=== PATIENT | female | born 1965 | race Hispanic/Latino ===

== ENCOUNTER 2016-06-30 06:30 | Inpatient (IN) | payer BC, MEDICAID ==
[2016-06-30 07:03] VITALS: BMI 26.8
[2016-06-30] MEDS ORDERED: Bupivacaine 0.5% Inj(30mL) ONE (07:37)
[2016-06-30] MEDS ORDERED: Propofol 10 mg/ml Inj (20 ML) ONE (07:55)
[2016-06-30] MEDS ORDERED: Midazolam 2 MG/2 ML VIAL ONE (07:56)
[2016-06-30] MEDS ORDERED: Succinylcholine 200 mg/10 ml Inj IV ONE (07:56)
[2016-06-30 07:57] LABS: ADD MANUAL DIFF? NO
[2016-06-30] MEDS ORDERED: metroNIDAZOLE IV 500 mg/100 ml 500 MG/100 ML BAG ONE (08:01)
[2016-06-30 08:03] LABS: BLOOD UREA NITROGEN 7 mg/dL (7-21); CALCIUM 9.7 mg/dL (8.4-10.5); CARBON DIOXIDE 27 mmol/L (21-33); CHLORIDE 101 mmol/L (98-107); GFR AFRICAN-AMERICAN > 60; GLUCOSE,RANDOM 94 mg/dL (70-110); POTASSIUM 3.3 mmol/L (3.6-5.0); SODIUM 139 mmol/L (132-148)
[2016-06-30 08:04] LABS: BASO # 0.02 K/mm3 (0.0-2.0); BASO % 0.3 % (0.0-3.0); EOS # 0.1 (0.0-0.7); EOS % 1.9 % (1.5-5.0); GRAN # 4.21 (1.4-6.5); GRAN % 67.8 % (50.0-68.0); HEMATOCRIT 37.4 % (36.0-48.0); INR 0.99 (0.93-1.08); LYMPH # 1.3 (1.2-3.4); LYMPH % 20.7 % (22.0-35.0); MEAN CELL VOLUME 100.3 fL (80.0-105.0); MEAN CORPUSCULAR HEMOGLOBIN 34.3 pg (25.0-35.0); MEAN CORPUSCULAR HGB CONC 34.2 g/dl (31.0-37.0); MEAN PLATELET VOLUME 9.4 fl (7.0-11.0); MONO # 0.6 (0.1-0.6); MONO % 9.3 % (1.0-6.0); PARTIAL THROMBOPLASTIN TIME 27.4 Seconds (23.7-30.8); PLATELET COUNT 270 10^3/uL (120.0-450.0); RED CELL DISTRIBUTION WIDTH 12.5 % (11.5-14.5); WHITE BLOOD COUNT 6.2 10^3/ul (4.5-11.0)
[2016-06-30] MEDS ORDERED: Rocuronium 10 mg/ml (5 ml) ONE ×3 (08:07→10:48)
[2016-06-30] MEDS ORDERED: Phenylephrine 10 mg/ml Inj ONE (08:42)
[2016-06-30] MEDS ORDERED: Desflurane Inhalation Anesthetic Liq (240 ml) ONE (08:50)
[2016-06-30] MEDS ORDERED: HYDROmorphone 2 mg/ml ISec ONE (10:22)
[2016-06-30] MEDS ORDERED: ePHEDrine 50 mg/ml Inj ONE (10:41)
[2016-06-30] MEDS ORDERED: Neostigmine Methylsulfate 3mg/3ml Syringe IV ONE (11:32)
[2016-06-30] MEDS ORDERED: HYDROmorphone 0.5 mg/0.5 ml ISec IVP ONE ×3 (12:12→12:30)
[2016-06-30] MEDS ORDERED: HYDROmorphone 0.5 mg/0.5 ml ISec ONE ×3 (12:15→13:35)
[2016-06-30] MEDS ORDERED: cefOXitin Sodium 1 GM in Sodium Chloride 0.9% 100 ML IV SCH (12:15)
[2016-06-30] MEDS ORDERED: HYDROmorphone 0.5 mg/0.5 ml ISec IVP PRN (12:23)
[2016-06-30] MEDS ORDERED: HYDROmorphone 1 mg/ml ISec IVP PRN ×2 (12:23→12:29)
[2016-06-30] MEDS ORDERED: HYDROmorphone 0.2 mg/ml (25ml) 25 ML IV PRN ×2 (12:24→14:59)
--- NOTE | 2016-06-30 12:27 | PCM.SURG1 ---
Surgeon's Initial Post Op Note - Surgeon's Notes Surgeon: Dr. Lan Photographic Plate Maker: Dr. Merchant, PGY-2, Dr. Elizabeth Type of Anesthesia: General Endo Pre-Operative Diagnosis: Colostomy Operative Findings: See operative report Post-Operative Diagnosis: Same Operation Performed: 1) Colostomy closure 2) Extensive lysis of intra-abdominal and pelvic adhesions 3) Enterrohorraphy x 7. 4) Partial colon resection with splenic flexure mobilization & low anterior anastomosis Specimen/Specimens Removed: partial colon Estimated Blood Loss: EBL {In ML}: 100 Blood Products Given: N/A Drains Used: John Post-Op Condition: Good Date of Surgery/Procedure: 06/30/16 Time of Surgery/Procedure: 12:27
--- NOTE | 2016-06-30 13:30 | OP ---
PROCEDURE DATE: 06/30/2016 PREOPERATIVE DIAGNOSIS: Colostomy status, history of diverticulosis. POSTOPERATIVE DIAGNOSIS: Colostomy status, history of diverticulosis and dense intra-abdominal pelvic adhesions and deserosalized small bowel. PROCEDURE PERFORMED: 1. Partial descending colectomy. 2. Colostomy closure. 3. Extensive lysis of dense intra-abdominal pelvic adhesions. 4. Repair of the bowel wall deserosalization in 7 areas of small bowel. 5. Splenic flexure mobilization. SURGEON: Dr. Lan ASSISTANTS: Dr. Elizabeth and Dr. Merchant ANESTHESIOLOGIST: Dr. Boucher ANESTHESIA: General endotracheal anesthesia. ESTIMATED BLOOD LOSS: Minimal. SPECIMEN: Portion of descending colon. INDICATION: The patient is a 50-year-old female who has a history of diverticular stricture status post diverticulitis with multiple diverticula, status post resection of the sigmoid colon as well as the right colon. The patient now comes in for reversal of colostomy. DESCRIPTION OF PROCEDURE: The patient was brought to the operating room and placed on the operating table in supine position. The patient was connected to EKG, blood pressure and pulse oximeter monitors. The patient then underwent general endotracheal anesthesia and was prepped and draped in usual sterile fashion. First, underwent timeout procedure, took place where everybody in the room agreed as to patient's identity, diagnosis and procedure being performed. Dr. Elizabeth, who is the retail event assistant, was present during the entire case from the beginning, from making the incision through the enterotomy, lysis of adhesions, colon resection and colostomy closure and through the closure of the abdominal wounds. He was essential in prompt and safe performance of this procedure. First, colostomy site was carefully incised in an elliptical fashion and then carefully cut. Dissection was carried down to the fascia. The colon was detached from the fascia and the ostomy site itself was then excised by transecting the colon with a KAYLA stapler. As this was mobilized, it was then dropped into the abdominal cavity and a midline incision was made through the subcutaneous fat and fascia. Fascia appeared to have several small midline incisional hernias. All of these were carefully dissected out and returned into the abdominal cavity and then the incision was carried through the midline transecting all the small herniations. Now, the abdominal cavity appeared to have multiple dense intra-abdominal adhesions between both small bowel itself, small bowel and colon as well as omentum. After tedious dissection of about an hour and a half, we were able to finally clear through the pelvic adhesion and bring all the small bowel out of the pelvis in order to expose the rectum. A careful dissection was done down there in order to expose the corner of the rectum marked with a stitch. Once this was done, I then proceeded with the further lysis of adhesions between the small bowel loops. Multiple small bowel loops, especially the ones stuck in the pelvis had multiple areas of deserosalization. In order to avoid injury to other organs, small bowel wall deserosalization of 7 different areas was carefully closed using multiple interrupted 3-0 silk stitches. Once all these repairs were done, I then proceeded with mobilizing the descending colon all the way up to transverse colon. Once this entire colon was mobilized, I then needed an adequate length in order to bring it down to the pelvis. In order to do that, the mesentery of the colon was carefully incised at its bottom and adequate length was obtained. However, a portion of the distal colon had to be resected in order to avoid ischemia. Once this was done, I then proceeded with sizing the colon, which sized up to 33 mm and then used an EA stapler #33 in order to anastomose the descending colon with the rectum. Once this was done, the anastomosis was tested with air and there were no leaks noted. The area was then copiously irrigated and all the irrigant fluid was suctioned out. All the small bowel was carefully run and evaluated and there was no further damage to the small bowel wall noted. Once this was completed, I then suctioned all the irrigant fluid and placed and surgical katja for skin. In a similar fashion, the ostomy incision was closed as well. The patient tolerated the procedure well and there was no complication. Sterile dressings were applied to the wound. The patient was awakened, extubated and transferred to the recovery room for further observation. Cornelius Lan MD cc: [id number] TT: 06/30/2016 13:29:45 sn JONES
[2016-06-30] MEDS ORDERED: metroNIDAZOLE IV 500 mg/100 ml 500 MG/100 ML BAG IVPB SCH (14:00)
[2016-06-30] MEDS ORDERED: Naloxone 0.4 mg/ml Inj (Adult) IVP ONE (14:40)
[2016-06-30] MEDS: cefOXitin Sodium 1 GM in Sodium Chloride 0.9% 100 ML IV SCH ×2 (15:52→23:15)
[2016-06-30] MEDS: metroNIDAZOLE IV 500 mg/100 ml 500 MG/100 ML BAG IVPB SCH (15:53)
[2016-06-30] MEDS: HYDROmorphone 0.5 mg/0.5 ml ISec IVP PRN (23:15)
[2016-07-01] MEDS: metroNIDAZOLE IV 500 mg/100 ml 500 MG/100 ML BAG IVPB SCH (01:06)
[2016-07-01] MEDS: HYDROmorphone 0.5 mg/0.5 ml ISec IVP PRN ×6 (02:30→20:20)
[2016-07-01] MEDS: Lactated Ringer's 1,000 ML IV SCH ×3 (05:58→18:12)
[2016-07-01 07:08] LABS: ADD MANUAL DIFF? NO
[2016-07-01 07:12] LABS: BASO # 0.01 K/mm3 (0.0-2.0); BASO % 0.1 % (0.0-3.0); EOS % 0.1 % (1.5-5.0); GRAN # 8.48 (1.4-6.5); MEAN CELL VOLUME 100.9 fL (80.0-105.0); MEAN CORPUSCULAR HEMOGLOBIN 34.1 pg (25.0-35.0); MEAN CORPUSCULAR HGB CONC 33.8 g/dl (31.0-37.0); MONO # 0.8 (0.1-0.6); MONO % 7.8 % (1.0-6.0); PLATELET COUNT 254 10^3/uL (120.0-450.0); RED CELL DISTRIBUTION WIDTH 12.8 % (11.5-14.5); WHITE BLOOD COUNT 10.4 10^3/ul (4.5-11.0)
[2016-07-01 07:34] LABS: ALB/GLOB RATIO 1.1 (1.1-1.8); ALKALINE PHOSPHATASE 77 U/L (38-133); ALT/SGPT 53 U/L (7-56); AST/SGOT 37 U/L (15-39); BILIRUBIN,TOTAL 0.5 mg/dL (0.2-1.3); BLOOD UREA NITROGEN 7 mg/dL (7-21); CALCIUM 8.2 mg/dL (8.4-10.5); CARBON DIOXIDE 29 mmol/L (21-33); CHLORIDE 101 mmol/L (95-110); GFR AFRICAN-AMERICAN > 60; GLUCOSE,RANDOM 95 mg/dL (70-110); POTASSIUM 3.4 mmol/L (3.6-5.0); SODIUM 138 mmol/L (132-148); TOTAL PROTEIN 6.3 g/dL (5.8-8.3)
[2016-07-01] MEDS ORDERED: Benzocaine/Menthol (Cepacol) Lozenge MT PRN (07:50)
--- NOTE | 2016-07-01 07:59 | CP.PCM.PN ---
<Tavon Luevano - Last Filed: 07/01/16 08:10> Subjective - Date & Time of Evaluation Date of Evaluation: 07/01/16 Time of Evaluation: 06:50 - Subjective Subjective: General Surgery Pt S&E. Pt had issue with depressed respiratory rate overnight. STORAGE BATTERY INSPECTOR AND TESTER was stopped and dilaudid PRN ordered. Pt is doing well, pain is controlled. Afebrile. Pt was having ice chips overnight and had 4 cups. NGT had 650cc out of dark brown fluid. John drain had 5cc serosanguinous fluid out since surgery. No other complaints. Objective - Vital Signs/Intake and Output Vital Signs (last 24 hours): Temp Pulse Resp BP Pulse Ox 97.9 F 92 H 20 119/79 97 06/30/16 23:45 06/30/16 23:45 06/30/16 23:45 06/30/16 23:45 06/30/16 20:30 Intake and Output: 07/01/16 07/01/16 06:59 18:59 Intake Total 1800 Output Total 1055 Balance 745 - Medications Medications: Current Medications Benzocaine/Menthol (Cepacol Sore Throat) 1 kayode MT Q2H PRN PRN Reason: Sore Throat Heparin Sodium (Porcine) (Heparin) 5,000 units SC Q12 EVELYN PRN Reason: Protocol Hydromorphone HCl (Dilaudid) 0.5 mg IVP Q3H PRN PRN Reason: Pain, moderate (4-7) Last Admin: 07/01/16 05:27 Dose: 0.5 mg Lactated Ringer's (Lactated Ringer's) 1,000 mls @ 100 mls/hr IV .Q10H EVELYN Last Admin: 07/01/16 05:58 Dose: 100 mls/hr Famotidine (Pepcid 20mg/50ml Premix) 20 mg in 50 mls @ 100 mls/hr IVPB Q12 EVELYN Hydromorphone HCl (Dilaudid 0.2 Mg/Ml Victim Advocate) 25 mls @ 0 mls/hr IV PRN PRN; Protocol; Per Protocol PRN Reason: STORAGE BATTERY INSPECTOR AND TESTER PER MD ORDER Stop: 07/02/16 11:30 Last Admin: 06/30/16 16:17 Dose: 0.2 mls/hr Ondansetron HCl (Zofran Inj) 4 mg IVP Q4H PRN PRN Reason: Nausea/Vomiting - Labs Labs: 07/01/16 06:30 07/01/16 06:30 PT 10.7 Seconds (9.9-11.8) 06/30/16 07:30 INR 0.99 (0.93-1.08) 06/30/16 07:30 APTT 27.4 Seconds (23.7-30.8) 06/30/16 07:30 - Constitutional Appears: Non-toxic, No Acute Distress - Head Exam Head Exam: ATRAUMATIC, NORMOCEPHALIC - Eye Exam Eye Exam: EOMI. absent: Scleral icterus - ENT Exam Additional comments: NGT in place - Respiratory Exam Respiratory Exam: NORMAL BREATHING PATTERN. absent: Respiratory Distress - GI/Abdominal Exam GI & Abdominal Exam: Soft, Tenderness (mild at incisions). absent: Distended, Firm, Guarding, Rigid Additional comments: dressings C/D/I drain in LLQ with 5cc serosanguinous fluid since surgery - Extremities Exam Extremities Exam: absent: Calf Tenderness - Neurological Exam Neurological Exam: Alert, Awake, Oriented x3 - Skin Skin Exam: Dry, Warm Additional comments: skin irritation around tape Assessment and Plan - Assessment and Plan (Free Text) Assessment: 50F s/p colostomy reversal POD#1 Plan: D/C medrano, trial of void Encouraged ambulation and IS use Strict NPO Ok to clamp NGT while ambulating D/W Dr. Riky Luevano PGY3 <Cornelius Lan - Last Filed: 07/03/16 13:12> Objective - Vital Signs/Intake and Output Vital Signs (last 24 hours): Temp Pulse Resp BP Pulse Ox 98.8 F 92 H 18 114/72 95 07/03/16 07:30 07/03/16 07:30 07/03/16 07:30 07/03/16 07:30 07/03/16 07:30 Intake and Output: 07/03/16 07/03/16 06:59 18:59 Intake Total 0 Output Total 505 Balance -505 - Medications Medications: Current Medications Benzocaine/Menthol (Cepacol Sore Throat) 1 kayode MT Q2H PRN PRN Reason: Sore Throat Heparin Sodium (Porcine) (Heparin) 5,000 units SC Q12 EVELYN PRN Reason: Protocol Last Admin: 07/03/16 11:43 Dose: 5,000 units Lactated Ringer's (Lactated Ringer's) 1,000 mls @ 100 mls/hr IV .Q10H [facility] Last Admin: 07/03/16 11:44 Dose: 100 mls/hr Morphine Sulfate (Morphine) 2 mg IVP Q4H PRN PRN Reason: Pain, moderate (4-7) Ondansetron HCl (Zofran Inj) 4 mg IVP Q4H PRN PRN Reason: Nausea/Vomiting Last Admin: 07/03/16 08:48 Dose: 4 mg Oxycodone/Acetaminophen (Percocet 5/325 Mg Tab) 1 tab PO Q4H PRN PRN Reason: Pain, moderate (4-7) Stop: 07/05/16 10:06 Last Admin: 07/02/16 13:51 Dose: 1 tab Simethicone (Mylicon Chew Tab) 80 mg PO PCHS PRN PRN Reason: GI distress Last Admin: 07/01/16 23:10 Dose: 80 mg - Labs Labs: 07/03/16 06:30 07/03/16 06:30 PT 10.7 Seconds (9.9-11.8) 06/30/16 07:30 INR 0.99 (0.93-1.08) 06/30/16 07:30 APTT 27.4 Seconds (23.7-30.8) 06/30/16 07:30 Assessment and Plan - Assessment and Plan (Free Text) Assessment: Patient was seen and examined by me. I agree with assessment and plan as per resident's note.
[2016-07-01] MEDS: Famotidine 20mg/50ml 20 MG/50 ML BAG IVPB SCH ×2 (12:31→21:52)
[2016-07-01] MEDS: Simethicone 80 mg Chewtab PO PRN (23:10)
[2016-07-02] MEDS: HYDROmorphone 0.5 mg/0.5 ml ISec IVP PRN ×5 (01:19→21:17)
--- NOTE | 2016-07-02 03:00 | CON ---
DATE: 07/01/2016 REASON FOR CONSULTATION: Management of the patient's chronic medical problems and followup of reverse colostomy. HISTORY OF PRESENT ILLNESS: The patient is a 50-year-old female, who underwent a reverse colostomy after colectomy 8 months ago for acute diverticulitis. The patient is doing well. The patient complains of some nonspecific abdominal bloating and pain in the surgical site. She is n.p.o. due to infected nasogastric tube. PAST MEDICAL HISTORY: Significant for acute recurrent diverticulitis with diverticulosis, status post colectomy 8 months ago, history of right breast cancer; the patient continues ongoing chemotherapy, history of anxiety, history of hypertension; presently off medication. PAST SURGICAL HISTORY: Colectomy with colostomy 8 months ago and right breast surgery. ALLERGIES: The patient has no known allergies. CURRENT MEDICATIONS: Omeprazole once a day, alprazolam 1 mg twice a day, zolpidem 10 mg at bedtime, valacyclovir 500 mg daily. FAMILY HISTORY: Denies any history of breast or colon cancer. SOCIAL HISTORY: The patient has history of smoking 1 pack a day for the past 30 years. She has a history of drinking alcohol 3-4 times a week. Denies any IV drug use. The patient is . She lives with . She is ambulatory and independent of activity of daily living. REVIEW OF SYSTEMS: Denies any fever, weight loss, dysphagia, cough, shortness of breath. She denies any chest pain or palpitations. She denies any diarrhea , nausea, vomiting, abdominal pain. She denies any dysuria, hematuria, flank pain. She denies any joint pains. She denies any neurological symptoms. The patient complains of chronic insomnia and anxiety. PHYSICAL EXAMINATION: VITAL SIGNS: Stable, temperature 97.3, pulse 83, blood pressure 126/91, respiratory rate 20, oxygen saturation 96% on room air. GENERAL: The patient is comfortable in bed, alert, awake, oriented. HEENT: Head is normocephalic, atraumatic. Oral mucosa is moist. There is an NG tube draining some brownish fluid. NECK: Supple. LUNGS: Clear to auscultation. HEART: Regular rhythm and rate. ABDOMEN: Soft. There is some tenderness in the surgical site, slightly distended. Bowel sounds are positive. EXTREMITIES: With no edema, no calf tenderness. Distal pulses palpable. DIAGNOSTIC TESTS: This morning, CBC with WBC 10.4, hemoglobin 10.8, hematocrit 32, platelet count 254. Chemistry significant for sodium 138, potassium 3.4, BUN 7, and creatinine 0.7. Liver enzymes are normal. ASSESSMENT: 1. A 50-year-old female status post reversal of colostomy, day 1. 2. Hypokalemia. 3. Chronic anemia. 4. Hypomagnesemia. 5. Anxiety. PLAN OF TREATMENT: Continue present postop care; we will replace potassium, we will monitor electrolytes, we will continue present pain management. Debbie Carroll MD cc: [id number] TT: 07/02/2016 02:59:59 Confirmation # [id number] Dictation # [id number] MTDD
[2016-07-02 07:15] LABS: ALKALINE PHOSPHATASE 77 U/L (38-133); ALT/SGPT 41 U/L (7-56); AST/SGOT 26 U/L (15-39); BILIRUBIN,TOTAL 0.7 mg/dL (0.2-1.3); BLOOD UREA NITROGEN 6 mg/dL (7-21); CALCIUM 8.7 mg/dL (8.4-10.5); CARBON DIOXIDE 30 mmol/L (21-33); CHLORIDE 101 mmol/L (98-107); GFR AFRICAN-AMERICAN > 60; GLUCOSE,RANDOM 97 mg/dL (70-110); POTASSIUM 3.2 mmol/L (3.6-5.0); SODIUM 139 mmol/L (132-148); TOTAL PROTEIN 6.5 g/dL (5.8-8.3)
[2016-07-02 07:29] LABS: HEMATOCRIT 31.2 % (36.0-48.0); MEAN CELL VOLUME 101.6 fL (80.0-105.0); MEAN CORPUSCULAR HEMOGLOBIN 34.5 pg (25.0-35.0); MEAN PLATELET VOLUME 9.1 fl (7.0-11.0); RED CELL DISTRIBUTION WIDTH 13.1 % (11.5-14.5); WHITE BLOOD COUNT 7.8 10^3/ul (4.5-11.0)
[2016-07-02] MEDS: Lactated Ringer's 1,000 ML IV SCH ×2 (07:40→07:41)
[2016-07-02] MEDS ORDERED: Magnesium Oxide 400 mg Tab UD PO STA (07:40)
[2016-07-02] MEDS ORDERED: Potassium Chloride 20 mEq ER Tab PO STA (07:40)
[2016-07-02] MEDS ORDERED: Magnesium Sulfate 1 gm in D5W 1 GM/100 ML BAG IVPB ONE (07:44)
[2016-07-02] MEDS ORDERED: Lactated Ringer's 1,000 ML IV SCH (10:04)
[2016-07-02] MEDS ORDERED: Oxycodone/Acetaminophen 5/325 mg Tab PO PRN (10:05)
[2016-07-02] MEDS: Famotidine 20mg/50ml 20 MG/50 ML BAG IVPB SCH (10:11)
--- NOTE | 2016-07-02 10:11 | CP.PCM.PN ---
<Amelia Merchant - Last Filed: 07/02/16 10:08> Subjective - Date & Time of Evaluation Date of Evaluation: 07/02/16 Time of Evaluation: 07:00 - Subjective Subjective: Surgery: Dr. Lan Pt seen and examined. Resting comfortably in bedside chair. States she's feeling well this morning. Admits to some post-op pain but states it's well controlled. Pt tolerating ice-chips, admits to flatus but denies BM. Denies N/V , F/C. Objective - Vital Signs/Intake and Output Vital Signs (last 24 hours): Temp Pulse Resp BP Pulse Ox 98.9 F 86 20 138/89 95 07/02/16 07:30 07/02/16 07:30 07/02/16 07:30 07/02/16 07:30 07/02/16 07:30 Intake and Output: 07/02/16 07/02/16 06:59 18:59 Output Total 30 Balance -30 - Medications Medications: Current Medications Benzocaine/Menthol (Cepacol Sore Throat) 1 kayode MT Q2H PRN PRN Reason: Sore Throat Heparin Sodium (Porcine) (Heparin) 5,000 units SC Q12 EVELYN PRN Reason: Protocol Last Admin: 07/01/16 21:52 Dose: 5,000 units Hydromorphone HCl (Dilaudid) 0.5 mg IVP Q6H PRN PRN Reason: Pain, severe (8-10) Lactated Ringer's (Lactated Ringer's) 1,000 mls @ 50 mls/hr IV .Q20H [facility] Ondansetron HCl (Zofran Inj) 4 mg IVP Q4H PRN PRN Reason: Nausea/Vomiting Last Admin: 07/02/16 01:28 Dose: 4 mg Oxycodone/Acetaminophen (Percocet 5/325 Mg Tab) 1 tab PO Q4H PRN PRN Reason: Pain, moderate (4-7) Stop: 07/05/16 10:06 Simethicone (Mylicon Chew Tab) 80 mg PO PCHS PRN PRN Reason: GI distress Last Admin: 07/01/16 23:10 Dose: 80 mg - Labs Labs: 07/02/16 06:30 07/02/16 06:30 PT 10.7 Seconds (9.9-11.8) 06/30/16 07:30 INR 0.99 (0.93-1.08) 06/30/16 07:30 APTT 27.4 Seconds (23.7-30.8) 06/30/16 07:30 - Constitutional Appears: Well, No Acute Distress - Head Exam Head Exam: ATRAUMATIC, NORMOCEPHALIC - Eye Exam Eye Exam: Normal appearance - ENT Exam ENT Exam: Mucous Membranes Moist - Respiratory Exam Respiratory Exam: NORMAL BREATHING PATTERN - Cardiovascular Exam Cardiovascular Exam: RRR - GI/Abdominal Exam GI & Abdominal Exam: Soft, Tenderness (around incision sites, jazlyn drain with serous fluid. Incisions C/D/I ). absent: Distended, Rebound - Extremities Exam Extremities Exam: Full ROM. absent: Tenderness - Neurological Exam Neurological Exam: Alert, Awake, Oriented x3 - Skin Skin Exam: Dry, Intact, Warm Assessment and Plan - Assessment and Plan (Free Text) Assessment: 50F s/p colostomy reversal; POD#2 Plan: - start CLD; will advance slowly as tolerated - replete K+ and Mg+ - taper IV pain meds and start PO meds - encourage ambulation - d/w Dr. Riky Merchant, PGY-2 Surgery <Cornelius Lan - Last Filed: 07/03/16 13:13> Objective - Vital Signs/Intake and Output Vital Signs (last 24 hours): Temp Pulse Resp BP Pulse Ox 98.8 F 92 H 18 114/72 95 07/03/16 07:30 07/03/16 07:30 07/03/16 07:30 07/03/16 07:30 07/03/16 07:30 Intake and Output: 07/03/16 07/03/16 06:59 18:59 Intake Total 0 Output Total 505 Balance -505 - Medications Medications: Current Medications Benzocaine/Menthol (Cepacol Sore Throat) 1 kayode MT Q2H PRN PRN Reason: Sore Throat Heparin Sodium (Porcine) (Heparin) 5,000 units SC Q12 EVELYN PRN Reason: Protocol Last Admin: 07/03/16 11:43 Dose: 5,000 units Lactated Ringer's (Lactated Ringer's) 1,000 mls @ 100 mls/hr IV .Q10H EVELYN Last Admin: 07/03/16 11:44 Dose: 100 mls/hr Morphine Sulfate (Morphine) 2 mg IVP Q4H PRN PRN Reason: Pain, moderate (4-7) Ondansetron HCl (Zofran Inj) 4 mg IVP Q4H PRN PRN Reason: Nausea/Vomiting Last Admin: 07/03/16 08:48 Dose: 4 mg Oxycodone/Acetaminophen (Percocet 5/325 Mg Tab) 1 tab PO Q4H PRN PRN Reason: Pain, moderate (4-7) Stop: 07/05/16 10:06 Last Admin: 07/02/16 13:51 Dose: 1 tab Simethicone (Mylicon Chew Tab) 80 mg PO PCHS PRN PRN Reason: GI distress Last Admin: 07/01/16 23:10 Dose: 80 mg - Labs Labs: 07/03/16 06:30 07/03/16 06:30 PT 10.7 Seconds (9.9-11.8) 06/30/16 07:30 INR 0.99 (0.93-1.08) 06/30/16 07:30 APTT 27.4 Seconds (23.7-30.8) 06/30/16 07:30 Assessment and Plan - Assessment and Plan (Free Text) Assessment: Patient was seen and examined by me. I agree with assessment and plan as per resident's note.
[2016-07-02] MEDS: Dextrose 5%/0.45% NS 1,000 ML IV SCH (17:17)
--- NOTE | 2016-07-02 18:12 | PN ---
DATE: 07/02/2016 SUBJECTIVE: The patient is status post reversal of colostomy, day #2. The patient is feeling much better. The patient was able to tolerate some liquids and oral medication. She continues with some mild pain at the surgical site. PHYSICAL EXAMINATION: VITAL SIGNS: Stable. Temperature 98.9, pulse 86, blood pressure 138/89, respiratory rate 20. GENERAL: The patient is comfortable, alert, awake, oriented. HEENT: Head is normocephalic, atraumatic. Oral mucosa is moist. NECK: Supple. LUNGS: Clear to auscultation. HEART: Regular rhythm and rate. ABDOMEN: Slightly distended. Bowel sounds are diminished. Surgical wound with dry dressing. EXTREMITIES: With no edema. DIAGNOSTIC TESTS: CBC with WBC 7.8, hemoglobin 10.6, platelet count 240,000. Chemistry with sodium 139, potassium 3.2 and low magnesium 1.0. ASSESSMENT: 1. Status post reversal of colostomy, day #2. 2. Hypokalemia. 3. Hypomagnesemia. 4. Chronic anemia. 5. Anxiety. PLAN OF TREATMENT: We will replace magnesium and potassium today. We will monitor her electrolytes. Continue pain management. Continue routine postoperative care as per surgery. Debbie Carroll MD cc: [id number] TT: 07/02/2016 18:11:50 Confirmation # [id number] Dictation # [id number] MTDD
[2016-07-03] MEDS: HYDROmorphone 0.5 mg/0.5 ml ISec IVP PRN ×2 (02:55→08:43)
[2016-07-03] MEDS: Dextrose 5%/0.45% NS 1,000 ML IV SCH ×2 (02:57→04:00)
[2016-07-03 07:14] LABS: MEAN CELL VOLUME 99.2 fL (80.0-105.0); MEAN CORPUSCULAR HEMOGLOBIN 34.2 pg (25.0-35.0); MEAN CORPUSCULAR HGB CONC 34.4 g/dl (31.0-37.0); MEAN PLATELET VOLUME 9.3 fl (7.0-11.0); RED CELL DISTRIBUTION WIDTH 12.7 % (11.5-14.5); WHITE BLOOD COUNT 4.3 10^3/ul (4.5-11.0)
[2016-07-03 07:19] LABS: BLOOD UREA NITROGEN 8 mg/dL (7-21); CALCIUM 9.8 mg/dL (8.4-10.5); CARBON DIOXIDE 36 mmol/L (21-33); CHLORIDE 90 mmol/L (98-107); GFR AFRICAN-AMERICAN > 60; GLUCOSE,RANDOM 141 mg/dL (70-110); MAGNESIUM 1.3 mg/dL (1.7-2.2); POTASSIUM 3.1 mmol/L (3.6-5.0); SODIUM 135 mmol/L (132-148)
[2016-07-03] MEDS ORDERED: Magnesium Sulfate 1 gm in D5W 1 GM/100 ML BAG IVPB ONE (08:01)
--- NOTE | 2016-07-03 09:40 | CP.PCM.PN ---
<Neyda Demarco - Last Filed: 07/03/16 11:17> Subjective - Date & Time of Evaluation Date of Evaluation: 07/03/16 Time of Evaluation: 09:37 - Subjective Subjective: General Surgery Dr. Lan Pt S&E @bedside. 3 episodes of vomiting overnight and early this AM. pt observed walking hallways. pain controlled; rated 7/10. admits to diarrhea. denies F/C. (-) Flatus. Objective - Vital Signs/Intake and Output Vital Signs (last 24 hours): Temp Pulse Resp BP Pulse Ox 98.8 F 92 H 18 114/72 95 07/03/16 07:30 07/03/16 07:30 07/03/16 07:30 07/03/16 07:30 07/03/16 07:30 Intake and Output: 07/03/16 07/03/16 06:59 18:59 Intake Total 0 Output Total 505 Balance -505 - Medications Medications: Current Medications Benzocaine/Menthol (Cepacol Sore Throat) 1 kayode MT Q2H PRN PRN Reason: Sore Throat Heparin Sodium (Porcine) (Heparin) 5,000 units SC Q12 EVELYN PRN Reason: Protocol Last Admin: 07/02/16 21:16 Dose: 5,000 units Lactated Ringer's (Lactated Ringer's) 1,000 mls @ 50 mls/hr IV .Q20H [facility] Last Admin: 07/02/16 10:10 Dose: 50 mls/hr Dextrose/Sodium Chloride (Dextrose 5%/0.45% Ns 1000 Ml) 1,000 mls @ 100 mls/hr IV .Q10H [facility] Last Admin: 07/03/16 04:00 Dose: 100 mls/hr Potassium Chloride (Potassium Chloride 20 Meq/100 Ml) 20 meq in 100 mls @ 50 mls/hr IVPB ONCE ONE Stop: 07/03/16 10:03 Last Admin: 07/03/16 08:49 Dose: 50 mls/hr Morphine Sulfate (Morphine) 2 mg IVP Q4H PRN PRN Reason: Pain, moderate (4-7) Ondansetron HCl (Zofran Inj) 4 mg IVP Q4H PRN PRN Reason: Nausea/Vomiting Last Admin: 07/03/16 08:48 Dose: 4 mg Oxycodone/Acetaminophen (Percocet 5/325 Mg Tab) 1 tab PO Q4H PRN PRN Reason: Pain, moderate (4-7) Stop: 07/05/16 10:06 Last Admin: 07/02/16 13:51 Dose: 1 tab Simethicone (Mylicon Chew Tab) 80 mg PO PCHS PRN PRN Reason: GI distress Last Admin: 07/01/16 23:10 Dose: 80 mg - Labs Labs: 07/03/16 06:30 07/03/16 06:30 PT 10.7 Seconds (9.9-11.8) 06/30/16 07:30 INR 0.99 (0.93-1.08) 06/30/16 07:30 APTT 27.4 Seconds (23.7-30.8) 06/30/16 07:30 - Constitutional Appears: Non-toxic, No Acute Distress - Head Exam Head Exam: NORMAL INSPECTION - Eye Exam Eye Exam: Normal appearance - ENT Exam ENT Exam: Mucous Membranes Moist - Respiratory Exam Respiratory Exam: NORMAL BREATHING PATTERN. absent: Accessory Muscle Use, Respiratory Distress - Cardiovascular Exam Cardiovascular Exam: REGULAR RHYTHM. absent: Bradycardia, Tachycardia - GI/Abdominal Exam GI & Abdominal Exam: Distended (minimal), Soft, Tenderness (glynn-incisional TTP) . absent: Rebound Additional comments: dressings c/d/i - Extremities Exam Extremities Exam: Normal Inspection - Neurological Exam Neurological Exam: Alert, Awake, Normal Gait, Oriented x3 - Psychiatric Exam Psychiatric exam: Normal Affect, Normal Mood - Skin Skin Exam: Dry, Normal Color, Warm Assessment and Plan - Assessment and Plan (Free Text) Assessment: 50 y/ F POD#3 s/p colostomy reversal - cont CLD - advance slowly as tolerated - replete electrolytes prn - cont pain management - cont anti-emetics - may need NGT if vomiting continues - encourage OOB to chair/Amb/IS use Pt discussed w/ Dr. Riky Demarco DO PGY1 <Cornelius Lan - Last Filed: 07/03/16 13:13> Objective - Vital Signs/Intake and Output Vital Signs (last 24 hours): Temp Pulse Resp BP Pulse Ox 98.8 F 92 H 18 114/72 95 07/03/16 07:30 07/03/16 07:30 07/03/16 07:30 07/03/16 07:30 07/03/16 07:30 Intake and Output: 07/03/16 07/03/16 06:59 18:59 Intake Total 0 Output Total 505 Balance -505 - Medications Medications: Current Medications Benzocaine/Menthol (Cepacol Sore Throat) 1 kayode MT Q2H PRN PRN Reason: Sore Throat Heparin Sodium (Porcine) (Heparin) 5,000 units SC Q12 EVELYN PRN Reason: Protocol Last Admin: 07/03/16 11:43 Dose: 5,000 units Lactated Ringer's (Lactated Ringer's) 1,000 mls @ 100 mls/hr IV .Q10H [facility]ELYN Last Admin: 07/03/16 11:44 Dose: 100 mls/hr Morphine Sulfate (Morphine) 2 mg IVP Q4H PRN PRN Reason: Pain, moderate (4-7) Ondansetron HCl (Zofran Inj) 4 mg IVP Q4H PRN PRN Reason: Nausea/Vomiting Last Admin: 07/03/16 08:48 Dose: 4 mg Oxycodone/Acetaminophen (Percocet 5/325 Mg Tab) 1 tab PO Q4H PRN PRN Reason: Pain, moderate (4-7) Stop: 07/05/16 10:06 Last Admin: 07/02/16 13:51 Dose: 1 tab Simethicone (Mylicon Chew Tab) 80 mg PO PCHS PRN PRN Reason: GI distress Last Admin: 07/01/16 23:10 Dose: 80 mg - Labs Labs: 07/03/16 06:30 07/03/16 06:30 PT 10.7 Seconds (9.9-11.8) 06/30/16 07:30 INR 0.99 (0.93-1.08) 06/30/16 07:30 APTT 27.4 Seconds (23.7-30.8) 06/30/16 07:30 Assessment and Plan - Assessment and Plan (Free Text) Assessment: Patient was seen and examined by me. I agree with assessment and plan as per resident's note.
--- NOTE | 2016-07-03 09:50 | PN ---
DATE: 07/03/2016 SUBJECTIVE: The patient is status post reversal of colostomy day 3. She is feeling well, but developed vomiting yesterday evening. She denies increase of abdominal pain. She seems to have episodes of vomiting after her Dilaudid injection. PHYSICAL EXAMINATION: VITAL SIGNS: Stable. Temperature 98.8, pulse 92, blood pressure 114/72, respiratory rate 18. GENERAL: Comfortable in a reclining chair, alert, awake, oriented. HEENT: Head normocephalic, atraumatic. Oral mucosa is moist. NECK: Supple. LUNGS: Clear to auscultation. HEART: With regular rhythm and rate. ABDOMEN: Soft. There is some tenderness around the surgical site. Bowel sounds are diminished, but positive. EXTREMITIES: With no edema. LABORATORY DATA: This morning, CBC very stable with WBC 4.3, hemoglobin 12.4. Chemistry significant for low magnesium 1.3. Her sodium is 135 normal. Potassium is very low 3.1. Her renal function normal with BUN 18, creatinine 0.8. ASSESSMENT: 1. Status post reversal of colostomy day #3. 2. Hypokalemia. 3. Hypomagnesemia. 4. Vomiting, possibly due to pain medication. 5. Anxiety. PLAN OF TREATMENT: Continue routine postop care. Trial of morphine for pain. Monitor for vomiting. Monitor electrolytes. We will replace her magnesium and potassium. Continue pain management as mentioned. Continue DVT prophylaxis with heparin. Debbie Carroll MD cc: [id number] TT: 07/03/2016 09:49:38 Confirmation # [id number] Dictation # [id number] leanne JONES
[2016-07-03] MEDS: Lactated Ringer's 1,000 ML IV SCH (11:44)
[2016-07-03] MEDS: Morphine 2 mg/ml ISec IVP PRN ×2 (16:10→20:37)
[2016-07-03 18:30] VITALS: RESP 20
[2016-07-03] MEDS: Simethicone 80 mg Chewtab PO PRN (21:15)
[2016-07-04] MEDS: Lactated Ringer's 1,000 ML IV SCH (07:45)
--- NOTE | 2016-07-04 08:42 | CP.PCM.PN ---
<Amelia Merchant - Last Filed: 07/04/16 08:37> Subjective - Date & Time of Evaluation Date of Evaluation: 07/04/16 Time of Evaluation: 07:00 - Subjective Subjective: Surgery: Dr. Lan Pt seen and examined. No acute overnight events. States she's feeling better this morning and has not had any more episodes of vomiting. She admits to having a loose BM. Tolerating CLD and ambulating. Denies F/C. Objective - Vital Signs/Intake and Output Vital Signs (last 24 hours): Temp Pulse Resp BP Pulse Ox 98.1 F 98 H 20 116/69 95 07/04/16 07:26 07/04/16 07:26 07/04/16 07:26 07/04/16 07:26 07/04/16 07:26 Intake and Output: 07/04/16 07/04/16 06:59 18:59 Intake Total 600 Output Total 40 Balance 560 - Medications Medications: Current Medications Benzocaine/Menthol (Cepacol Sore Throat) 1 kayode MT Q2H PRN PRN Reason: Sore Throat Heparin Sodium (Porcine) (Heparin) 5,000 units SC Q12 EVELYN PRN Reason: Protocol Last Admin: 07/03/16 21:15 Dose: 5,000 units Lactated Ringer's (Lactated Ringer's) 1,000 mls @ 100 mls/hr IV .Q10H [facility] Last Admin: 07/03/16 11:44 Dose: 100 mls/hr Morphine Sulfate (Morphine) 2 mg IVP Q4H PRN PRN Reason: Pain, moderate (4-7) Last Admin: 07/03/16 20:37 Dose: 2 mg Ondansetron HCl (Zofran Inj) 4 mg IVP Q4H PRN PRN Reason: Nausea/Vomiting Last Admin: 07/03/16 20:41 Dose: 4 mg Oxycodone/Acetaminophen (Percocet 5/325 Mg Tab) 1 tab PO Q4H PRN PRN Reason: Pain, moderate (4-7) Stop: 07/05/16 10:06 Last Admin: 07/02/16 13:51 Dose: 1 tab Simethicone (Mylicon Chew Tab) 80 mg PO PCHS PRN PRN Reason: GI distress Last Admin: 07/03/16 21:15 Dose: 80 mg Zolpidem Tartrate (Ambien) 5 mg PO HS PRN; Protocol PRN Reason: Insomnia - Labs Labs: 07/03/16 06:30 07/03/16 06:30 PT 10.7 Seconds (9.9-11.8) 06/30/16 07:30 INR 0.99 (0.93-1.08) 06/30/16 07:30 APTT 27.4 Seconds (23.7-30.8) 06/30/16 07:30 - Constitutional Appears: Well, No Acute Distress - Head Exam Head Exam: ATRAUMATIC, NORMOCEPHALIC - Eye Exam Eye Exam: Normal appearance - ENT Exam ENT Exam: Mucous Membranes Moist - Respiratory Exam Respiratory Exam: NORMAL BREATHING PATTERN - Cardiovascular Exam Cardiovascular Exam: RRR - GI/Abdominal Exam GI & Abdominal Exam: Soft. absent: Guarding, Tenderness Additional comments: midline incision with katja, clean dry, intact. John drain LLQ with serosanguinous fluid - Extremities Exam Extremities Exam: absent: Tenderness - Neurological Exam Neurological Exam: Alert, Awake, Oriented x3 - Skin Skin Exam: Dry, Warm Assessment and Plan - Assessment and Plan (Free Text) Assessment: 50F s/p colostomy reversal; POD#4 Plan: - Will advance to FLD and if tolerates will advance to soft for lunch - Cont to encourage ambulation - d/w Dr. Riky Merchant, PGY-2 Surgery <Cornelius Lan - Last Filed: 07/05/16 08:17> Objective - Vital Signs/Intake and Output Vital Signs (last 24 hours): Temp Pulse Resp BP Pulse Ox 98.4 F 89 20 109/73 92 L 07/04/16 16:00 07/04/16 16:00 07/04/16 16:00 07/04/16 16:00 07/04/16 16:00 - Labs Labs: 07/04/16 08:50 07/04/16 08:50 PT 10.7 Seconds (9.9-11.8) 06/30/16 07:30 INR 0.99 (0.93-1.08) 06/30/16 07:30 APTT 27.4 Seconds (23.7-30.8) 06/30/16 07:30 Assessment and Plan - Assessment and Plan (Free Text) Assessment: Patient was seen and examined by me. I agree with assessment and plan as per resident's note.
[2016-07-04 09:09] LABS: HEMATOCRIT 34.2 % (36.0-48.0); MEAN CORPUSCULAR HEMOGLOBIN 34.2 pg (25.0-35.0); MEAN CORPUSCULAR HGB CONC 34.2 g/dl (31.0-37.0); MEAN PLATELET VOLUME 9.2 fl (7.0-11.0); RED CELL DISTRIBUTION WIDTH 12.8 % (11.5-14.5); WHITE BLOOD COUNT 4.9 10^3/ul (4.5-11.0)
[2016-07-04] MEDS: Morphine 2 mg/ml ISec IVP PRN ×3 (09:14→18:06)
[2016-07-04 09:18] LABS: ALB/GLOB RATIO 1.2 (1.1-1.8); ALKALINE PHOSPHATASE 111 U/L (38-133); ALT/SGPT 30 U/L (7-56); AST/SGOT 23 U/L (15-39); BILIRUBIN,TOTAL 0.9 mg/dL (0.2-1.3); BLOOD UREA NITROGEN 14 mg/dL (7-21); CALCIUM 9.3 mg/dL (8.4-10.5); CARBON DIOXIDE 30 mmol/L (21-33); CHLORIDE 90 mmol/L (95-110); GFR AFRICAN-AMERICAN > 60; GLUCOSE,RANDOM 100 mg/dL (70-110); SODIUM 134 mmol/L (132-148); TOTAL PROTEIN 7.4 g/dL (5.8-8.3)
[2016-07-04] MEDS ORDERED: Potassium Chloride 20 mEq ER Tab PO STA (09:54)
[2016-07-04] MEDS ORDERED: Magnesium Oxide 400 mg Tab UD PO STA (09:54)
[2016-07-04 16:47] VITALS: BP 109/73; PULSE 89; TEMP 98.4; O2SAT 92
[2016-07-04] MEDS ORDERED: Potassium Chloride 10 mEq ER Tab PO ONE (17:29)
[2016-07-04] MEDS ORDERED: Magnesium Oxide 400 mg Tab UD PO SCH (18:00)
[2016-07-04] MEDS: Simethicone 80 mg Chewtab PO PRN (18:06)
--- NOTE | 2016-07-04 18:55 | PN ---
DATE: 07/04/2016 SUBJECTIVE: The patient is status post reversal of colostomy surgery day #3. The patient is tolerating clear liquids. She denies any nausea or vomiting. She, however, has diarrhea, had multiple episodes of loose bowel movements, watery bowel movements last night. PHYSICAL EXAMINATION: VITAL SIGNS: Stable. Temperature 98.1, pulse 98, blood pressure 116/69, respiratory rate 20. GENERAL: Comfortable in a reclining chair. Alert, awake, oriented. HEENT: Head is normocephalic, atraumatic. Oral mucosa is moist. NECK: Supple. LUNGS: Clear to auscultation. HEART: Regular rhythm and rate. ABDOMEN: Soft. Bowel sounds are positive. Surgical wound dry with dry clean dressing. EXTREMITIES: With no edema. DIAGNOSTIC TESTS: CBC with WBC 4.9, hemoglobin 11.7, hematocrit 34.2 and platelet count 232,000. Chemistry significant for hypokalemia with potassium 3. Her sodium is 134 and her BUN is and creatinine 0.9. ASSESSMENT: 1. Status post reversal of colostomy day #4. 2. Hypokalemia. 3. Hypomagnesemia. 4. Diarrhea. PLAN OF TREATMENT: We will advance patient's diet. We will replace potassium and magnesium. Continue monitoring of electrolytes. Debbie Carroll MD cc: [id number] TT: 07/04/2016 18:54:07 Confirmation # [id number] Dictation # [id number] leanne MTDAlexia
--- NOTE | 2016-07-04 19:03 | CP.PCM.DIS ---
<NilamNeyda - Last Filed: 07/04/16 19:07> Provider - Provider Date of Admission: 06/30/16 06:30 Attending physician: Cornelius Lan MD Primary care physician: Debbie Puentes MD Time Spent in preparation of Discharge (in minutes): 30 Hospital Course - Lab Results Lab Results: Most Recent Lab Values WBC 4.9 10^3/ul (4.5-11.0) 07/04/16 08:50 RBC 3.42 10^6/uL (3.5-6.1) L 07/04/16 08:50 Hgb 11.7 gm/dL (12.0-16.0) L 07/04/16 08:50 Hct 34.2 % (36.0-48.0) L 07/04/16 08:50 MCV 100.0 fL (80.0-105.0) 07/04/16 08:50 MCH 34.2 pg (25.0-35.0) 07/04/16 08:50 MCHC 34.2 g/dl (31.0-37.0) 07/04/16 08:50 RDW 12.8 % (11.5-14.5) 07/04/16 08:50 Plt Count 332 10^3/uL (120.0-450.0) 07/04/16 08:50 MPV 9.2 fl (7.0-11.0) 07/04/16 08:50 Gran % 82.0 % (50.0-68.0) H 07/01/16 06:30 Lymph % (Auto) 10.0 % (22.0-35.0) L 07/01/16 06:30 [place] % (Auto) 7.8 % (1.0-6.0) H 07/01/16 06:30 Eos % (Auto) 0.1 % (1.5-5.0) L 07/01/16 06:30 Baso % (Auto) 0.1 % (0.0-3.0) 07/01/16 06:30 Gran # 8.48 (1.4-6.5) H 07/01/16 06:30 Lymph # 1.0 (1.2-3.4) L 07/01/16 06:30 [place] # 0.8 (0.1-0.6) H 07/01/16 06:30 Eos # 0.0 (0.0-0.7) 07/01/16 06:30 Baso # 0.01 K/mm3 (0.0-2.0) 07/01/16 06:30 PT 10.7 Seconds (9.9-11.8) 06/30/16 07:30 INR 0.99 (0.93-1.08) 06/30/16 07:30 APTT 27.4 Seconds (23.7-30.8) 06/30/16 07:30 Sodium 134 mmol/L (132-148) 07/04/16 08:50 Potassium 3.0 mmol/L (3.6-5.0) L 07/04/16 08:50 Chloride 90 mmol/L (95-110) L 07/04/16 08:50 Carbon Dioxide 30 mmol/L (21-33) 07/04/16 08:50 Anion Gap 17 (10-20) 07/04/16 08:50 BUN 14 mg/dL (7-21) 07/04/16 08:50 Creatinine 0.9 mg/dL (0.5-1.4) 07/04/16 08:50 Est GFR ( Amer) > 60 07/04/16 08:50 Est GFR (Non-Af Amer) > 60 07/04/16 08:50 Random Glucose 100 mg/dL (70-110) 07/04/16 08:50 Calcium 9.3 mg/dL (8.4-10.5) 07/04/16 08:50 Magnesium 1.3 mg/dL (1.7-2.2) L 07/03/16 06:30 Total Bilirubin 0.9 mg/dL (0.2-1.3) 07/04/16 08:50 AST 23 U/L (15-39) 07/04/16 08:50 ALT 30 U/L (7-56) 07/04/16 08:50 Alkaline Phosphatase 111 U/L (38-133) 07/04/16 08:50 Total Protein 7.4 g/dL (5.8-8.3) 07/04/16 08:50 Albumin 4.0 g/dL (3.0-4.8) 07/04/16 08:50 Globulin 3.4 gm/dL 07/04/16 08:50 Albumin/Globulin Ratio 1.2 (1.1-1.8) 07/04/16 08:50 Urine HCG, Qual Negative (NEGATIVE) 06/30/16 07:15 Blood Type A POSITIVE 06/30/16 07:30 Antibody Screen Negative 06/30/16 07:30 BBK History Checked Patient has bt 06/30/16 07:30 - Hospital Course Hospital Course: 50 y/o F w/ PMHx of HTN, anxiety, R breast Ca, and acute diverticulitis requiring colon resection 8 months ago, who presented to [facility] for elective colostomy reversal. The procedure was uncomplicated and pt tolerated the surgery well. NGT was placed intraoperative and removed POD#1. Pt was plagued w / abd pain and distension after starting CLD; however that resolved w/ BM. Pt is tolerating regular diet and requiring minimal pain medication. John drain placed intraoperatively had minimal output over course of hospital stay was removed prior to pt discharge. Pt is cleared for discharge to home w/ instructions to follow up w/ Dr. Lan and PMD in 1-2wks. Discharge Exam - Head Exam Head Exam: ATRAUMATIC, NORMOCEPHALIC Discharge Plan - Discharge Medications Prescriptions: oxyCODONE/Acetaminophen [Percocet 5/325 mg Tab] 1 ea PO Q6 PRN #30 tab PRN Reason: Pain, Severe (8-10) - Follow Up Plan Condition: GOOD Disposition: HOME/ ROUTINE Instructions: Pneumococcal Vaccine for Adults (DC), Regular Diet (DC), Lysis of Abdominal Adhesions (DC), Acute Wound Care (DC), Open Colostomy Reversal (DC) Referrals: Cornelius Lan MD [Staff Provider] - Debbie Carroll MD [Primary Care Provider] - <Cornelius Lan - Last Filed: 07/05/16 08:18> Provider - Provider Date of Admission: 06/30/16 06:30 Attending physician: Cornelius Lan MD Primary care physician: Debbie Puentes MD Hospital Course - Lab Results Lab Results: Most Recent Lab Values WBC 4.9 10^3/ul (4.5-11.0) 07/04/16 08:50 RBC 3.42 10^6/uL (3.5-6.1) L 07/04/16 08:50 Hgb 11.7 gm/dL (12.0-16.0) L 07/04/16 08:50 Hct 34.2 % (36.0-48.0) L 07/04/16 08:50 MCV 100.0 fL (80.0-105.0) 07/04/16 08:50 MCH 34.2 pg (25.0-35.0) 07/04/16 08:50 MCHC 34.2 g/dl (31.0-37.0) 07/04/16 08:50 RDW 12.8 % (11.5-14.5) 07/04/16 08:50 Plt Count 332 10^3/uL (120.0-450.0) 07/04/16 08:50 MPV 9.2 fl (7.0-11.0) 07/04/16 08:50 Gran % 82.0 % (50.0-68.0) H 07/01/16 06:30 Lymph % (Auto) 10.0 % (22.0-35.0) L 07/01/16 06:30 [place] % (Auto) 7.8 % (1.0-6.0) H 07/01/16 06:30 Eos % (Auto) 0.1 % (1.5-5.0) L 07/01/16 06:30 Baso % (Auto) 0.1 % (0.0-3.0) 07/01/16 06:30 Gran # 8.48 (1.4-6.5) H 07/01/16 06:30 Lymph # 1.0 (1.2-3.4) L 07/01/16 06:30 [place] # 0.8 (0.1-0.6) H 07/01/16 06:30 Eos # 0.0 (0.0-0.7) 07/01/16 06:30 Baso # 0.01 K/mm3 (0.0-2.0) 07/01/16 06:30 PT 10.7 Seconds (9.9-11.8) 06/30/16 07:30 INR 0.99 (0.93-1.08) 06/30/16 07:30 APTT 27.4 Seconds (23.7-30.8) 06/30/16 07:30 Sodium 134 mmol/L (132-148) 07/04/16 08:50 Potassium 3.0 mmol/L (3.6-5.0) L 07/04/16 08:50 Chloride 90 mmol/L (95-110) L 07/04/16 08:50 Carbon Dioxide 30 mmol/L (21-33) 07/04/16 08:50 Anion Gap 17 (10-20) 07/04/16 08:50 BUN 14 mg/dL (7-21) 07/04/16 08:50 Creatinine 0.9 mg/dL (0.5-1.4) 07/04/16 08:50 Est GFR ( Amer) > 60 07/04/16 08:50 Est GFR (Non-Af Amer) > 60 07/04/16 08:50 Random Glucose 100 mg/dL (70-110) 07/04/16 08:50 Calcium 9.3 mg/dL (8.4-10.5) 07/04/16 08:50 Magnesium 1.3 mg/dL (1.7-2.2) L 07/03/16 06:30 Total Bilirubin 0.9 mg/dL (0.2-1.3) 07/04/16 08:50 AST 23 U/L (15-39) 07/04/16 08:50 ALT 30 U/L (7-56) 07/04/16 08:50 Alkaline Phosphatase 111 U/L (38-133) 07/04/16 08:50 Total Protein 7.4 g/dL (5.8-8.3) 07/04/16 08:50 Albumin 4.0 g/dL (3.0-4.8) 07/04/16 08:50 Globulin 3.4 gm/dL 07/04/16 08:50 Albumin/Globulin Ratio 1.2 (1.1-1.8) 07/04/16 08:50 Urine HCG, Qual Negative (NEGATIVE) 06/30/16 07:15 Blood Type A POSITIVE 06/30/16 07:30 Antibody Screen Negative 06/30/16 07:30 BBK History Checked Patient has bt 06/30/16 07:30
[2016-07-05] MEDS ORDERED: Potassium Chloride 20 mEq ER Tab PO SCH (08:00)
== END 2016-07-04 19:45 | disposition home or self-care (01) | DRG 331 ==
LOC: SDAINP 06:30 → EDSTATUS 09:00 → 5RNO 15:35
PROVIDERS: ADMIT General Practice; ATTEND General Practice
PROC: 0DNE0ZZ Release Large Intestine, Open Approach (ICD-10-PCS; 2016-06-30)
PROC: 0DBM0ZZ Excision of Descending Colon, Open Approach (ICD-10-PCS; principal; 2016-06-30 07:30)
PROC: 0DQM0ZZ Repair Descending Colon, Open Approach (ICD-10-PCS; 2016-06-30 07:30)
PROC: 0DN80ZZ Release Small Intestine, Open Approach (ICD-10-PCS; 2016-06-30 07:30)
DX: Z43.3 Encounter for attention to colostomy (principal); K66.0 Peritoneal adhesions (postprocedural) (postinfection); E83.42 Hypomagnesemia; I10 Essential (primary) hypertension; E87.6 Hypokalemia; D64.9 Anemia, unspecified; F41.9 Anxiety disorder, unspecified; Z85.3 Personal history of malignant neoplasm of breast; Z87.891 Personal history of nicotine dependence

== ENCOUNTER 2017-03-23 09:33 | Emergency (ER) | payer BC, MEDICAID ==
[2017-03-23 09:34] VITALS: BMI 26.8
[2017-03-23 10:11] LABS: BASO # 0.03 K/mm3 (0.0-2.0); BASO % 0.4 % (0.0-3.0); EOS # 0.1 (0.0-0.7); GRAN # 4.38 (1.4-6.5); HEMOGLOBIN 13.9 g/dL (12.0-16.0); LYMPH # 3.1 (1.2-3.4); LYMPH % 36.7 % (22.0-35.0); MEAN CELL VOLUME 95.4 fl (80.0-105.0); MEAN CORPUSCULAR HEMOGLOBIN 33.6 pg (25.0-35.0); MEAN CORPUSCULAR HGB CONC 35.2 g/dl (31.0-37.0); MEAN PLATELET VOLUME 9.5 fl (7.0-11.0); MONO # 0.8 (0.1-0.6); MONO % 9.9 % (1.0-6.0); RBC 4.14 10^6/uL (3.5-6.1); RED CELL DISTRIBUTION WIDTH 13.6 % (11.5-14.5); WHITE BLOOD COUNT 8.4 10^3/ul (4.5-11.0)
[2017-03-23 10:26] LABS: PARTIAL THROMBOPLASTIN TIME 32.9 Seconds (25.1-36.5); PROTHROMBIN TIME 11.5 SECONDS (9.4-12.5)
[2017-03-23 10:27] LABS: ALB/GLOB RATIO 1.4 (1.1-1.8); ALBUMIN 4.8 g/dL (3.0-4.8); ALT/SGPT 95 U/L (7-56); AST/SGOT 163 U/L (14-36); BLOOD UREA NITROGEN 11 mg/dL (7-21); CALCIUM 9.8 mg/dL (8.4-10.5); GFR AFRICAN-AMERICAN > 60; GFR NON-AFRICAN AMERICAN > 60; MAGNESIUM 1.1 mg/dL (1.7-2.2)
[2017-03-23 10:32] LABS: B-TYPE NATRIURETIC PEPTIDE 30.1 pg/mL (0-450); TROPONIN I < 0.01 ng/mL
[2017-03-23 10:44] LABS: CK-MB 1.8 ng/mL (0.0-3.6)
[2017-03-23] MEDS ORDERED: Sodium Chloride 0.9% 1,000 ML IV STA (11:12)
[2017-03-23 11:19] VITALS: BP 131/85; PULSE 95; RESP 18; O2SAT 98
[2017-03-23] MEDS ORDERED: Magnesium Sulfate 1 gm in D5W 1 GM/100 ML BAG IVPB ONE (11:47)
[2017-03-23] MEDS ORDERED: Potassium Chloride 20 mEq ER Tab PO STA (11:47)
--- NOTE | 2017-03-23 11:58 | ED PDOC ---
Arrival/HPI - General Chief Complaint: Shortness Of Breath Time Seen by Provider: 03/23/17 09:43 Historian: Patient - History of Present Illness Narrative History of Present Illness (Text): 03/23/17 11:52 you were treated in the ED today for shortness of breath and anxiety otherwise without any nausea/vomiting/headache/dizziness/chest pain/abdomen pain/numbness/ tingling/loss of limb function/pain with urination. hx of breast ca but otherwise no travel'/prior blood clots/hormanal use. no thoughts to harm yourself/others/hallucinations but feeling anxious. 03/23/17 12:25 Time/Duration: Prior to Arrival Symptom Course: Unchanged Context: Home Past Medical History - Provider Review Nursing Documentation Reviewed: Yes - Travel History Have you recently traveled outside [place] w/in the past 3 mons?: No - Infectious Disease Hx of Infectious Diseases: None - Tetanus Immunization Tetanus Immunization: Unknown - Cardiac Hx Cardiac Disorders: No - Pulmonary Hx Respiratory Disorders: No - Neurological Hx Neurological Disorder: No - HEENT Hx HEENT Disorder: No - Renal Hx Renal Disorder: No - Endocrine/Metabolic Hx Endocrine Disorders: No - Hematological/Oncological Hx Blood Disorders: Yes Hx Cancer: Yes (breast ca right) - Integumentary Hx Dermatological Disorder: No - Musculoskeletal/Rheumatological Hx Musculoskeletal Disorders: No Hx Falls: No - Gastrointestinal Hx Gastrointestinal Disorders: Yes Hx Colostomy: Yes Hx Diverticulitis: Yes - Genitourinary/Gynecological Hx Genitourinary Disorders: No - Psychiatric Hx Psychophysiologic Disorder: Yes Hx Anxiety: Yes Hx Substance Use: No - Past Surgical History Past Surgical History: No Previous - Surgical History Other/Comment: colostomy - Anesthesia Hx Anesthesia: Yes Hx Anesthesia Reactions: No Hx Malignant Hyperthermia: No - Suicidal Assessment Feels Threatened In Home Enviroment: No Family/Social History - Physician Review Nursing Documentation Reviewed: Yes Family/Social History: No Known Family HX Smoking Status: Current Some Days Smoker Hx Alcohol Use: Yes (1-2 DRINKS/DAY) Hx Substance Use: No Hx Substance Use Treatment: No Allergies/Home Meds Allergies/Adverse Reactions: Allergies No Known Allergies Allergy (Verified 03/23/17 09:37) Home Medications: Home Meds Medication Instructions Recorded Confirmed valACYclovir [Valtrex] 500 mg PO QAM 06/29/13 03/23/17 Zolpidem Tartrate [Ambien] 10 mg PO HS 12/12/14 03/23/17 Alprazolam [Xanax] 1 mg PO QID PRN 12/25/14 03/23/17 Omeprazole 10 mg PO QAM 01/17/16 03/23/17 Bupropion HCl [Zyban] 150 mg PO QAM 06/17/16 03/23/17 Review of Systems - Physician Review All systems were reviewed & negative as marked: Yes - Review of Systems Constitutional: Normal Eyes: Normal ENT: Normal Respiratory: SOB Cardiovascular: Normal. absent: Chest Pain Gastrointestinal: absent: Abdominal Pain, Nausea, Vomiting Genitourinary Female: absent: Dysuria Musculoskeletal: Normal Skin: Normal Neurological: Normal. absent: Headache, Dizziness, Focal Weakness Endocrine: Normal Hemo/Lymphatic: Normal Psychiatric: Anxiety Physical Exam Vital Signs Reviewed: Yes Vital Signs Pulse Resp BP Pulse Ox 03/23/17 11:18 95 H 18 131/85 98 03/23/17 09:43 22 97 03/23/17 09:42 111 H 22 138/93 H 97 Blood Pressure: Hypertensive Pulse: Tachycardic Respiratory Rate: Normal Appearance: Positive for: Well-Appearing, Non-Toxic, Comfortable Pain Distress: None Mental Status: Positive for: Alert and Oriented X 3 Finger Stick Blood Glucose: 127 - Systems Exam Head: Present: Atraumatic, Normocephalic Pupils: Present: PERRL Extroacular Muscles: Present: EOMI Conjunctiva: Present: Normal Ears: Present: Normal Mouth: Present: Moist Mucous Membranes Pharnyx: Present: Normal Nose (External): Present: Atraumatic Nose (Internal): Present: Normal Inspection Neck: Present: Normal Range of Motion Respiratory/Chest: Present: Clear to Auscultation, Good Air Exchange Cardiovascular: Present: Regular Rate and Rhythm Abdomen: No: Tenderness, Distention, Normal Bowel Sounds, Peritoneal Signs, Rebound, Guarding, McBurney's Point Tender, Rovsing's Sign Present, Hernias, Feeding Tubes, Ostomy Tubes, Mass/Organomegaly, Scars, Other Upper Extremity: Present: Normal Inspection Lower Extremity: Present: Normal Inspection Neurological: Present: GCS=15, CN II-XII Intact, Speech Normal, Motor Func Grossly Intact Skin: Present: Warm, Normal Color Psychiatric: Present: Alert, Oriented x 3, Normal Insight, Normal Concentration , Anxious. No: Normal Affect, Normal Mood, Agitated, Depressed Mood, Suicidal Ideation, Homicidal Ideation, Delusional, Hallucinations, Intoxicated, Lethargic , Other Medical Decision Making ED Course and Treatment: you were treated in the ED today for shortness of breath and anxiety otherwise without any nausea/vomiting/headache/dizziness/chest pain/abdomen pain/numbness/ tingling/loss of limb function/pain with urination/no thoughts to harm yourself or others or hallucinations. You were otherwise breathing easily, pink/moist lips, smiling when you speak, good strength/sensation, alert/oriented, walking easily, clear lungs, no abdomen tenderness, no fever temp 98, heart rate 95 improved, stable breathing rate 22, excellent oxygen level 97% room air, elevated blood pressure 138/93 which we recommend repeat in 2-3 days primary care office to determine further treatment, you have blood tests no infection count 8.4, stable blood level hemoglobin 13.9/platelets 332, stable chemistry sodium 140, potassium supplemented IV fluids given, bicarbonate mildly low, chloride normal, bun normal, creatinine mildly low, glucose mildly elevated, mildly elevated anion gap 25 which was hydrated, liver AST/ALT elevated, Liver Alklaline Phosphatase elevated, Liver bilirubin normal, magnesium supplemented IV fluids given, heart blood test normal, low risk of blood clot, urine test no clear sign of infection and you have no pain with urination, urine test negative, no acute findings on chest xray results no acute, ECG mild fast rate which came on on vital signs, Xanax given in the ED with improvement, and thus discharged home. IV fluids given for mild electrolyte imbalance which was supplemented. Case discussed with Dr. Puentes, who is aware of and in agreement with plan. She recommend follow-up primary care 2-3 days to review symptoms, referral to gastroenterology for mildly elevated liver tests to ensure no complications, endocrine for sugar control, mental health clinic referral. If any worsening pain, fever, chills, nausea, vomiting, difficulty breathing, numbness, loss of limb function, pain with urination or any medical condition then return to the ED. Report Date : 03/23/2017 12:18:21 Procedure: Chest xray Dictator : Magali Engel MD IMPRESSION: No acute findings. 03/23/17 12:29 03/23/17 12:30 03/23/17 12:31 03/23/17 12:34 03/23/17 12:34 - Lab Interpretations Lab Results: 03/23/17 10:00 03/23/17 10:00 Lab Results 03/23/17 11:50: Urine Color Yellow, Urine Appearance Sl cloudy, Urine pH 8.5, Ur Specific [place] 1.010, Urine Protein 30 H, Urine Glucose (UA) Negative, Urine Ketones 40 H, Urine Blood Negative, Urine Nitrate Negative, Urine Bilirubin Negative, Urine Urobilinogen 0.2, Ur Leukocyte Esterase Small H, Urine RBC Negative, Urine WBC 1 - 3, Ur Epithelial Cells Many, Urine Bacteria Many 03/23/17 10:00: Sodium 140, Potassium 3.4 L, Chloride 98, Carbon Dioxide 20 L, Anion Gap 25 H, BUN 11, Creatinine 0.6 L, Est GFR ( Amer) > 60, Est GFR ( Non-Af Amer) > 60, Random Glucose 144 H, Calcium 9.8, Magnesium 1.1 L, Total Bilirubin 0.5, AST 163 H, ALT 95 H, Alkaline Phosphatase 156 H, Lactate Dehydrogenase 684, Total Creatine Kinase 238 H, CK-MB (CK-2) 1.8, CK-MB (CK-2) % Cancelled, Troponin I < 0.01, NT-Pro-B Natriuret Pep 30.1, Total Protein 8.2, Albumin 4.8, Globulin 3.4, Albumin/Globulin Ratio 1.4 03/23/17 10:00: PT 11.5, INR 1.00, APTT 32.9, D-Dimer, Quantitative 241 03/23/17 10:00: WBC 8.4 D, RBC 4.14, Hgb 13.9, Hct 39.5, MCV 95.4, MCH 33.6, MCHC 35.2, RDW 13.6, Plt Count 332, MPV 9.5, Gran % 52.0, Lymph % (Auto) 36.7 H , [place] % (Auto) 9.9 H, Eos % (Auto) 1.0 L, Baso % (Auto) 0.4, Gran # 4.38, Lymph # 3.1, [place] # 0.8 H, Eos # 0.1, Baso # 0.03 I have reviewed the lab results: Yes - RAD Interpretation Radiology Orders: 03/23/17 11:38 CHEST TWO VIEWS (PA/LAT) [RAD] Stat Optician Apprentice: Radiologist - EKG Interpretation Interpreted by ED Physician: Yes (sinus tachycardia with pvcs.) Type: 12 lead EKG - Medication Orders Current Medication Orders: Magnesium Sulfate/Dextrose (Magnesium Sulfate 1 Gm/100 Ml D5w) 1 gm in 100 mls @ 100 mls/hr IVPB ONCE ONE Stop: 03/23/17 12:46 Last Admin: 03/23/17 12:05 Dose: Discontinued Medications Alprazolam (Xanax) 0.5 mg PO STAT STA PRN Reason: Protocol Stop: 03/23/17 10:03 Last Admin: 03/23/17 10:07 Dose: 0.5 mg Sodium Chloride (Sodium Chloride 0.9%) 1,000 mls @ 999 mls/hr IV .Q1H1M STA Stop: 03/23/17 12:12 Last Admin: 03/23/17 11:15 Dose: 999 mls/hr eMAR Start Stop Document 03/23/17 11:15 SE (Rec: 03/23/17 11:15 SE [id number]) Intravenous Solution Start Date 03/23/17 Start Time 11:15 Potassium Chloride (K-Dur 20 Meq Er Tab) 40 meq PO STAT STA Stop: 03/23/17 11:48 Last Admin: 03/23/17 12:05 Dose: 40 meq Disposition/Present on Arrival - Present on Arrival Any Indicators Present on Arrival: Yes History of DVT/PE: No History of Uncontrolled Diabetes: No Urinary Catheter: No History of Decub. Ulcer: No History Surgical Site Infection Following: None - Disposition Have Diagnosis and Disposition been Completed?: Yes Diagnosis: Anxiety Disposition: HOME/ ROUTINE Disposition Time: 12:35 Patient Plan: Discharge Condition: IMPROVED Additional Instructions: you were treated in the ED today for shortness of breath and anxiety otherwise without any nausea/vomiting/headache/dizziness/chest pain/abdomen pain/numbness/ tingling/loss of limb function/pain with urination/no thoughts to harm yourself or others or hallucinations. You were otherwise breathing easily, pink/moist lips, smiling when you speak, good strength/sensation, alert/oriented, walking easily, clear lungs, no abdomen tenderness, no fever temp 98, heart rate 95 improved, stable breathing rate 22, excellent oxygen level 97% room air, elevated blood pressure 138/93 which we recommend repeat in 2-3 days primary care office to determine further treatment, you have blood tests no infection count 8.4, stable blood level hemoglobin 13.9/platelets 332, stable chemistry sodium 140, potassium supplemented IV fluids given, bicarbonate mildly low, chloride normal, bun normal, creatinine mildly low, glucose mildly elevated, mildly elevated anion gap 25 which was hydrated, liver AST/ALT elevated, Liver Alklaline Phosphatase elevated, Liver bilirubin normal, magnesium supplemented IV fluids given, heart blood test normal, low risk of blood clot, urine test no clear sign of infection and you have no pain with urination, urine test negative, no acute findings on chest xray results no acute, ECG mild fast rate which came on on vital signs, Xanax given in the ED with improvement, and thus discharged home. IV fluids given for mild electrolyte imbalance which was supplemented. Case discussed with Dr. Puentes, who is aware of and in agreement with plan. She recommend follow-up primary care 2-3 days to review symptoms, referral to gastroenterology for mildly elevated liver tests to ensure no complications, endocrine for sugar control, mental health clinic referral. If any worsening pain, fever, chills, nausea, vomiting, difficulty breathing, numbness, loss of limb function, pain with urination or any medical condition then return to the ED. Referrals: Debbie Carroll MD [Primary Care Provider] - Follow up with primary Forms: [employer] ([place]an)
[2017-03-23 11:59] LABS: PH,URINE 8.5 (4.7-8.0); URINE APPEARANCE SL CLOUDY (CLEAR); URINE BILIRUBIN NEGATIVE (NEGATIVE); URINE BLOOD NEGATIVE (NEGATIVE); URINE COLOR YELLOW (YELLOW); URINE GLUCOSE (UA) NEGATIVE (NEGATIVE); URINE LEUKOCYTE ESTERASE SMALL Leu/uL (NEGATIVE); URINE NITRATE NEGATIVE (NEGATIVE); URINE PROTEIN 30 mg/dL (<30 mg/dL); URINE UROBILINOGEN 0.2 E.U./dL (<1 E.U./dL)
[2017-03-23 12:06] LABS: URINE BACTERIA MANY (NEG); URINE EPITHELIAL CELLS MANY /hpf (0-5)
[2017-03-23 12:07] LABS: URINE RBC NEGATIVE /hpf (0-2)
--- NOTE | 2017-03-23 12:20 | RAD ---
HISTORY: COMPARISON: 01/17/2017 TECHNIQUE: Chest PA and lateral FINDINGS: LINES AND TUBES: The right MediPort is stable in position terminating in the SVC. LUNG AND PLEURA: The lungs are well inflated and clear. HEART AND MEDIASTINUM: The heart is not enlarged. The hilar and mediastinal contours are within normal limits. SKELETAL STRUCTURES: The bony structures are within normal limits for the patient's age. VISUALIZED UPPER ABDOMEN: Normal. OTHER FINDINGS: None. IMPRESSION: No acute findings.
[2017-03-23 12:32] VITALS: TEMP 98
--- NOTE | 2017-03-23 13:58 | CARD ---
APPROVED REPORT EKG Measurement Heart [id number] NM [id number] <Conclusion> Sinus tachycardia with occasional premature ventricular complexes Otherwise normal ECG
== END 2017-03-23 12:46 | disposition home or self-care (01) ==
LOC: ED 09:33
DX: F41.9 Anxiety disorder, unspecified (principal); Z85.3 Personal history of malignant neoplasm of breast; Z93.3 Colostomy status; F17.210 Nicotine dependence, cigarettes, uncomplicated
CPT/HCPCS: 71046; 80053; 81001; 82550; 82553; 83615; 83735; 83880; 84484; 85025; 85378; 85610; 85730; 87086; 93005; 99284; J7040

== ENCOUNTER 2017-09-18 16:26 | Observation (INO) | payer BC, MEDICAID ==
[2017-09-18] MEDS ORDERED: Multivitamin (MVI) 10 ML, Thiamine 100 MG, Folic Acid 1 MG in Sodium Chloride 0.9% 1,00... IV ONE ×2 (16:44→19:32)
--- NOTE | 2017-09-18 16:48 | ED PDOC ---
Arrival/HPI - General Time Seen by Provider: 09/18/17 16:30 Historian: Patient - History of Present Illness Narrative History of Present Illness (Text): 09/18/17 16:43 A 51 year old female, whose past medical history includes breast CA on tamoxifen , presents to the emergency room s/p seizure prior to arrival. Patient states that she was at the nail salon getting a pedicure when she began to experience a generalized tonic-clonic seizure. The patient notes that she bit her lower lip. Patient states that she experienced a similar episode several months ago. She reports that she quit smoking 1 month ago. Patient is an alcoholic, and has 6 drinks a day. She states that she stopped drinking 2 days ago. The patient denies fevers, chills, headache, dizziness, sore throat, cough, chest pain, shortness of breath, dyspnea on exertion, abdominal pain, nausea, vomiting, diarrhea, neck/back pain, urinary/bowel changes/ incontinence or any other complaint. PMD: Dr. Puentes Time/Duration: Prior to Arrival Symptom Onset: Sudden Symptom Course: Unchanged Activities at Onset: Rest, Light Context: Other (Nail Salon) Associated Symptoms (Text): 09/18/17 17:00 Daughter reports generalized tonic-clonic seizure activity while sitting in a chair at the nail salon. Similar episode several months ago. Patient is an alcoholic and last drank 2 days ago. Past Medical History - Provider Review Nursing Documentation Reviewed: Yes - Infectious Disease Hx of Infectious Diseases: None - Tetanus Immunization Tetanus Immunization: Unknown - Cardiac Hx Cardiac Disorders: No - Pulmonary Hx Respiratory Disorders: No - Neurological Hx Neurological Disorder: No - HEENT Hx HEENT Disorder: No - Renal Hx Renal Disorder: No - Endocrine/Metabolic Hx Endocrine Disorders: No - Hematological/Oncological Hx Blood Disorders: Yes Hx Cancer: Yes (breast ca right) - Integumentary Hx Dermatological Disorder: No - Musculoskeletal/Rheumatological Hx Musculoskeletal Disorders: No Hx Falls: No - Gastrointestinal Hx Gastrointestinal Disorders: Yes Hx Colostomy: Yes Hx Diverticulitis: Yes - Genitourinary/Gynecological Hx Genitourinary Disorders: No - Psychiatric Hx Psychophysiologic Disorder: Yes Hx Anxiety: Yes Hx Substance Use: No - Past Surgical History Past Surgical History: No Previous - Surgical History Other/Comment: colostomy - Anesthesia Hx Anesthesia: Yes Hx Anesthesia Reactions: No Hx Malignant Hyperthermia: No - Suicidal Assessment Feels Threatened In Home Enviroment: No Family/Social History - Physician Review Nursing Documentation Reviewed: Yes Family/Social History: No Known Family HX Smoking Status: Current Some Days Smoker Hx Alcohol Use: Yes Frequency of alcohol use: Daily Hx Substance Use: No Hx Substance Use Treatment: No Allergies/Home Meds Allergies/Adverse Reactions: Allergies No Known Allergies Allergy (Verified 09/18/17 16:43) Home Medications: Home Meds Medication Instructions Recorded Confirmed valACYclovir [Valtrex] 500 mg PO QAM 06/29/13 03/23/17 Zolpidem Tartrate [Ambien] 10 mg PO HS 12/12/14 03/23/17 Alprazolam [Xanax] 1 mg PO QID PRN 12/25/14 03/23/17 Omeprazole 10 mg PO QAM 01/17/16 03/23/17 Bupropion HCl [Zyban] 150 mg PO QAM 06/17/16 03/23/17 Review of Systems - Physician Review All systems were reviewed & negative as marked: Yes - Review of Systems Constitutional: absent: Fatigue, Fevers, Night Sweats ENT: Other (Lip Biting). absent: Sore Throat Respiratory: absent: SOB, Cough Cardiovascular: absent: Chest Pain, WALL Gastrointestinal: absent: Abdominal Pain, Stool Changes, Diarrhea, Nausea, Vomiting Genitourinary Female: absent: Urine Output Changes Musculoskeletal: absent: Back Pain, Neck Pain Neurological: Seizure. absent: Headache, Dizziness, Focal Weakness, Gait Changes, Speech Changes, Facial Droop, Disequilibrium Physical Exam Vital Signs Temp Pulse Resp BP Pulse Ox 09/18/17 17:35 85 18 110/74 94 L 09/18/17 16:27 98.7 F 117 H 16 143/82 98 Temperature: Afebrile Blood Pressure: Hypertensive Pulse: Tachycardic Respiratory Rate: Normal Appearance: Positive for: Well-Appearing, Non-Toxic, Comfortable Pain Distress: None Mental Status: Positive for: Alert and Oriented X 3 - Systems Exam Head: Present: Atraumatic, Normocephalic Pupils: Present: PERRL Extroacular Muscles: Present: EOMI Conjunctiva: Present: Normal Ears: Present: NORMAL TM. No: Erythema, Normal Canal Mouth: Present: Moist Mucous Membranes. No: Normal Lips (Lower lip biting) Pharnyx: No: ERYTHEMA, EXUDATE, TONSILS ENLARGED Neck: Present: Normal Range of Motion Respiratory/Chest: Present: Clear to Auscultation, Good Air Exchange. No: Respiratory Distress, Accessory Muscle Use Cardiovascular: Present: Regular Rate and Rhythm, Normal S1, S2. No: Murmurs Abdomen: No: Tenderness, Distention, Peritoneal Signs, Rebound, Guarding Back: Present: Normal Inspection Upper Extremity: Present: Normal Inspection. No: Cyanosis, Edema Lower Extremity: Present: Normal Inspection. No: Edema Neurological: Present: GCS=15, CN II-XII Intact, Speech Normal, Motor Func Grossly Intact, Other (Patient Shaking) Skin: Present: Warm, Dry, Normal Color. No: Rashes Psychiatric: Present: Alert, Oriented x 3, Normal Insight, Normal Concentration Medical Decision Making ED Course and Treatment: 09/18/17 16:51 Impression: A 51 year old female presents to the emergency room s/p seizure. Plan: -- Head CT -- EKG -- Ativan and IV Fluids -- Urinalysis -- Reassess and disposition Progress Notes: 09/18/17 17:02 EKG shows normal sinus rhythm rate approximately [address] or T-wave changes 09/18/17 17:57 Case discussed in detail with Dr. Muñiz who accepts patient to her service. She is currently at beside assessing the patient for Telemetry admission. PROCEDURE: CT HEAD WITHOUT CONTRAST. Dictator : Chuy Severino MD Report Date : 09/18/2017 17:41:46 IMPRESSION: No acute intracranial pathology. - Lab Interpretations Lab Results: 09/18/17 17:00 09/18/17 17:00 Lab Results 09/18/17 17:00: Alcohol, Quantitative < 10 09/18/17 17:00: Sodium 139, Potassium 3.4 L, Chloride 100, Carbon Dioxide 19 L, Anion Gap 24 H, BUN 11, Creatinine 0.8, Est GFR ( Amer) > 60, Est GFR ( Non-Af Amer) > 60, Random Glucose 182 H, Calcium 9.3, Magnesium 1.4 L, Total Bilirubin 0.9, AST 90 H D, ALT 49, Alkaline Phosphatase 101, Total Protein 7.8, Albumin 4.5, Globulin 3.3, Albumin/Globulin Ratio 1.4 09/18/17 17:00: WBC 6.4 D, RBC 4.19, Hgb 14.3, Hct 40.7, MCV 97.1, MCH 34.1, MCHC 35.1, RDW 13.2, Plt Count 265, MPV 9.6, Gran % 68.9 H, Lymph % (Auto) 21.1 L, [place] % (Auto) 8.7 H, Eos % (Auto) 0.8 L, Baso % (Auto) 0.5, Gran # 4.44, Lymph # (Auto) 1.4, [place] # (Auto) 0.6, Eos # (Auto) 0.1, Baso # (Auto) 0.03 I have reviewed the lab results: Yes - RAD Interpretation Radiology Orders: 09/18/17 16:44 HEAD W/O CONTRAST [CT] Stat CT scan of the head as read by the radiologist shows no acute findings. Silo Operator: Radiologist - EKG Interpretation Interpreted by ED Physician: Yes Type: 12 lead EKG - Medication Orders Current Medication Orders: Magnesium Sulfate/Dextrose (Magnesium Sulfate 1 Gm/100 Ml D5w) 1 gm in 100 mls @ 100 mls/hr IVPB ONCE ONE Stop: 09/18/17 18:44 Discontinued Medications Multivitamins/Vitamin C 10 ml/Thiamine HCl 100 mg/ Folic Acid 1 mg/ Sodium Chloride 1,011.2 mls @ 1,000 mls/hr IV .Q1H1M ONE Stop: 09/18/17 17:44 Last Admin: 09/18/17 17:49 Dose: 1,000 mls/hr eMAR Start Stop Document 09/18/17 17:49 SRE (Rec: 09/18/17 17:49 SRE [id number]) Intravenous Solution Start Date 09/18/17 Start Time 17:49 End Date 09/18/17 End time 18:50 Total Infusion Time 61 Lorazepam (Ativan) 2 mg IVP STAT STA Stop: 09/18/17 16:45 Last Admin: 09/18/17 16:58 Dose: 2 mg IVP Administration Document 09/18/17 16:58 SRE (Rec: 09/18/17 16:58 SRE [id number]) Charges for Administration # of IVP Administrations 1 Potassium Chloride (K-Dur 20 Meq Er Tab) 20 meq PO STAT STA Stop: 09/18/17 17:45 - Scribe Statement The provider has reviewed the documentation as recorded by the Scribe Aliyah Richardson Provider Scribe Attestation: All medical record entries made by the Scribe were at my direction and personally dictated by me. I have reviewed the chart and agree that the record accurately reflects my personal performance of the history, physical exam, medical decision making, and the department course for this patient. I have also personally directed, reviewed, and agree with the discharge instructions and disposition. Disposition/Present on Arrival - Present on Arrival Any Indicators Present on Arrival: No History of DVT/PE: No History of Uncontrolled Diabetes: No Urinary Catheter: No History of Decub. Ulcer: No History Surgical Site Infection Following: None - Disposition Have Diagnosis and Disposition been Completed?: Yes Diagnosis: Alcohol withdrawal seizure, Seizure Disposition: HOSPITALIZED Disposition Time: 17:54 Patient Plan: Admission, Telemetry Patient Problems: Current Active Problems Problem Status Onset Alcohol withdrawal seizure Acute Seizure Acute Condition: GOOD
[2017-09-18 17:16] LABS: BASO # 0.03 K/mm3 (0.0-2.0); BASO % 0.5 % (0.0-3.0); EOS # 0.1 (0.0-0.7); EOS % 0.8 % (1.5-5.0); GRAN # 4.44 (1.4-6.5); GRAN % 68.9 % (50.0-68.0); HEMOGLOBIN 14.3 g/dL (12.0-16.0); LYMPH # 1.4 (1.2-3.4); LYMPH % 21.1 % (22.0-35.0); MEAN CELL VOLUME 97.1 fl (80.0-105.0); MEAN CORPUSCULAR HEMOGLOBIN 34.1 pg (25.0-35.0); MEAN CORPUSCULAR HGB CONC 35.1 g/dl (31.0-37.0); MEAN PLATELET VOLUME 9.6 fl (7.0-11.0); MONO # 0.6 (0.1-0.6); MONO % 8.7 % (1.0-6.0); RBC 4.19 10^6/uL (3.5-6.1); RED CELL DISTRIBUTION WIDTH 13.2 % (11.5-14.5); WHITE BLOOD COUNT 6.4 10^3/ul (4.5-11.0)
--- NOTE | 2017-09-18 17:43 | CT ---
Date of service: 09/18/2017 PROCEDURE: CT HEAD WITHOUT CONTRAST. HISTORY: seizure COMPARISON: None available. TECHNIQUE: Axial computed tomography images were obtained through the head/brain without intravenous contrast. Radiation dose: Total exam DLP = 864.9 mGy-cm. This CT exam was performed using one or more of the following dose reduction techniques: Automated exposure control, adjustment of the mA and/or kV according to patient size, and/or use of iterative reconstruction technique. FINDINGS: HEMORRHAGE: No intracranial hemorrhage. BRAIN: No mass effect or edema. Mild atrophy. Mild chronic microvascular ischemic changes. Left parietal parenchymal calcification. VENTRICLES: Unremarkable. No hydrocephalus. CALVARIUM: Unremarkable. PARANASAL SINUSES: Unremarkable as visualized. No significant inflammatory changes. MASTOID AIR CELLS: Unremarkable as visualized. No inflammatory changes. OTHER FINDINGS: None. IMPRESSION: No acute intracranial pathology.
[2017-09-18 17:44] LABS: ALB/GLOB RATIO 1.4 (1.1-1.8); ALBUMIN 4.5 g/dL (3.0-4.8); ALT/SGPT 49 U/L (7-56); AST/SGOT 90 U/L (14-36); BLOOD UREA NITROGEN 11 mg/dL (7-21); CALCIUM 9.3 mg/dL (8.4-10.5); GFR AFRICAN-AMERICAN > 60; GFR NON-AFRICAN AMERICAN > 60
[2017-09-18] MEDS ORDERED: Potassium Chloride 20 mEq ER Tab PO STA (17:44)
[2017-09-18] MEDS ORDERED: Magnesium Sulfate 1 gm in D5W 1 GM/100 ML BAG IVPB ONE ×2 (17:45→19:29)
--- NOTE | 2017-09-18 19:04 | CP.PCM.HP ---
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 She states that approximately around two hours prior, she was at a nail salon with her daughter , who witnessed her becoming tremulous and cyanotic, progressing to convulsions with foaming at the mouth. Patient states that she experienced a sensation of "overheating," diaphoresis, and double vision before losing consciousness. She also experienced biting of her lip. The entire episode lasted approximately 5-6 minutes. She drinks 1 pint of alcohol daily, and has not had a drink since two days ago. Currently she states she is feeling fine. She denies trauma, headaches , dizziness, hearing changes, nausea, vomiting, chest pain, shortness of breath , constipation, diarrhea, dysuria. Denies bladder or bowel incontinence. PMH: HTN, breast cancer s/p chemo and radiation now on tamoxifen, diverticulitis Past surgical history: lumpectomy, sigmoid resection with colostomy and reversal Social history: 1 pint of alcohol per day since 16 years old. Former smoker (35 pack years, quit 2015). Denies recreational drug use. Family history: Father (, jaw cancer) Mother (, gastric cancer) Allergies: NKDA Home meds: tamoxifen, valtrex, omeprazole, xanax PMD: Dr. Puentes Oncologist: Dr. Bhatia A 12 point ROS was benign except as stated in HPI. Present on Admission - Present on Admission Any Indicators Present on Admission: No History of DVT/PE: No History of Uncontrolled Diabetes: No Urinary Catheter: No Decubitus Ulcer Present: No Past Patient History - Infectious Disease Hx of Infectious Diseases: None - Tetanus Immunizations Tetanus Immunization: Unknown - Past Social History Smoking Status: Former Smoker Alcohol: > 2 Drinks/Day Drugs: Denies - CARDIAC Hx Cardiac Disorders: No - PULMONARY Hx Respiratory Disorders: No - NEUROLOGICAL Hx Neurological Disorder: No - HEENT Hx HEENT Problems: No - RENAL Hx Chronic Kidney Disease: No - ENDOCRINE/METABOLIC Hx Endocrine Disorders: No - HEMATOLOGICAL/ONCOLOGICAL Hx Blood Disorders: Yes Hx Cancer: Yes (breast ca right) - INTEGUMENTARY Hx Dermatological Problems: No - MUSCULOSKELETAL/RHEUMATOLOGICAL Hx Musculoskeletal Disorders: No Hx Falls: No - GASTROINTESTINAL Hx Gastrointestinal Disorders: Yes Hx Colostomy: Yes Hx Diverticulitis: Yes - GENITOURINARY/GYNECOLOGICAL Hx Genitourinary Disorders: No - PSYCHIATRIC Hx Psychophysiologic Disorder: Yes Hx Anxiety: Yes Hx Substance Use: No - SURGICAL HISTORY Other/Comment: colostomy - ANESTHESIA Hx Anesthesia: Yes Hx Anesthesia Reactions: No Hx Malignant Hyperthermia: No Meds Home Medications: Home Medication List Medication Instructions Recorded Confirmed Type chlordiazePOXIDE [Chlordiazepoxide 10 mg PO TID #6 cap 09/19/17 Rx HCl] Allergies/Adverse Reactions: Allergies Allergy/AdvReac Type Severity Reaction Status Date / Time No Known Allergies Allergy Verified 09/18/17 16:43 Physical Exam - Constitutional Appears: Non-toxic, No Acute Distress - Head Exam Head Exam: ATRAUMATIC, NORMOCEPHALIC - Eye Exam Eye Exam: EOMI, PERRL Pupil Exam: NORMAL ACCOMODATION - ENT Exam ENT Exam: Mucous Membranes Dry Additional comments: 1 cm abrasion inside bottom lip - Neck Exam Neck exam: Positive for: Normal Inspection. Negative for: Lymphadenopathy, Tenderness - Respiratory Exam Respiratory Exam: Clear to Auscultation Bilateral, NORMAL BREATHING PATTERN. absent: Rales, Rhonchi, Wheezes - Cardiovascular Exam Cardiovascular Exam: Tachycardia, REGULAR RHYTHM, +S1, +S2 - GI/Abdominal Exam GI & Abdominal Exam: Normal Bowel Sounds, Soft. absent: Distended, Rebound, Rigid, Tenderness - Extremities Exam Extremities exam: Positive for: normal capillary refill, normal inspection. Negative for: calf tenderness, pedal edema, tenderness - Back Exam Back exam: NORMAL INSPECTION - Neurological Exam Neurological exam: Alert, CN II-XII Intact, Oriented x3, Reflexes Normal - Psychiatric Exam Psychiatric exam: Normal Affect, Normal Mood - Skin Skin Exam: Dry, Intact, Warm Results - Vital Signs Recent Vital Signs: Last Vital Signs Temp 98.7 F 09/18/17 16:27 Pulse 85 09/18/17 17:35 Resp 18 09/18/17 17:35 BP 110/74 09/18/17 17:35 Pulse Ox 94 L 09/18/17 17:35 - Labs Result Diagrams: 09/18/17 17:00 09/18/17 17:00 Assessment & Plan - Assessment and Plan (Free Text) Assessment: Patient is a 51 year old female with past medical history HTN, breast cancer, diverticulitis, alcohol abuse presenting s/p one episode of seizure and was found to have hypokalemia and hypomagnesemia. Plan: Seizure - Likely secondary to alcohol withdrawal as patient has extensive history of alcohol abuse - AST 90/ALT 49 - Head CT shows mild chronic microvascular ischemic changes. Left parietal parenchymal calcification. No acute intracranial pathology. - Alcohol level <10 - Followup urine drug screen - 2 mg Ativan given in ED. Continue with Ativan 1 mg IVP Q8H and 2 mg IVP Q6H PRN - 1 L banana bag given in ED. Continue with 1 L banana bag. - [facility] protocol - Alcohol withdrawal assessment Q4H - Seizure, aspiration, fall precautions Hypomagnesemia - Magnesium sulfate 1 gram given in ED. Continue with magnesium sulfate 1 gram. - Replete as needed Hypokalemia - K-Dur 20 meq given in ED. K-Dur 60 meq ordered. - Replete as needed History of breast cancer - Patient takes tamoxifen. However was unable to reconcile medication. Will ask patient to provide home tamoxifen. GI/DVT Prophylaxis - IV Protonix 40 mg IVP QD - Lovenox 40 mg SC daily Further recommendations per Dr. Muñiz Case discussed and plan approved by attending physician Dr. Antonino Downs PGY-1 <Cuco Muñiz - Last Filed: 09/19/17 14:42> Results - Vital Signs Recent Vital Signs: Last Vital Signs Temp 98.6 F 09/19/17 14:28 Pulse 76 09/19/17 12:00 Resp 18 09/19/17 12:00 BP 120/89 09/19/17 12:00 Pulse Ox 97 09/19/17 06:00 - Labs Result Diagrams: 09/19/17 06:30 09/19/17 06:30 Labs: Laboratory Results - last 24 hr 09/19/17 09/19/17 09/19/17 02:30 02:30 06:30 WBC 7.0 RBC 3.75 Hgb 12.7 Hct 37.0 MCV 98.7 MCH 33.9 MCHC 34.3 RDW 13.4 Plt Count 225 MPV 9.7 Gran % 70.4 H Lymph % (Auto) 20.2 L [place] % (Auto) 8.1 H Eos % (Auto) 1.0 L Baso % (Auto) 0.3 Gran # 4.94 Lymph # (Auto) 1.4 [place] # (Auto) 0.6 Eos # (Auto) 0.1 Baso # (Auto) 0.02 Sodium Potassium Chloride Carbon Dioxide Anion Gap BUN Creatinine Est GFR ( Amer) Est GFR (Non-Af Amer) Random Glucose Calcium Magnesium Total Bilirubin AST ALT Alkaline Phosphatase Total Protein Albumin Globulin Albumin/Globulin Ratio Urine Color Yellow Urine Appearance Clear Urine pH 8.0 Ur Specific [place] 1.015 Urine Protein Negative Urine Glucose (UA) Negative Urine Ketones Negative Urine Blood Negative Urine Nitrate Negative Urine Bilirubin Negative Urine Urobilinogen 0.2 Ur Leukocyte Esterase Negative Urine Opiates Screen Negative Urine Methadone Screen Negative Ur Barbiturates Screen Negative Ur Phencyclidine Scrn Negative Ur Amphetamines Screen Negative U Benzodiazepines Scrn Positive H U Oth Cocaine Metabols Negative U Cannabinoids Screen Negative 09/19/17 06:30 WBC RBC Hgb Hct MCV MCH MCHC RDW Plt Count MPV Gran % Lymph % (Auto) [place] % (Auto) Eos % (Auto) Baso % (Auto) Gran # Lymph # (Auto) [place] # (Auto) Eos # (Auto) Baso # (Auto) Sodium 140 Potassium 4.4 Chloride 105 Carbon Dioxide 25 Anion Gap 14 BUN 8 Creatinine 0.6 L Est GFR ( Amer) > 60 Est GFR (Non-Af Amer) > 60 Random Glucose 106 Calcium 8.6 Magnesium 1.9 Total Bilirubin 1.0 AST 84 H ALT 50 Alkaline Phosphatase 86 Total Protein 7.0 Albumin 4.0 Globulin 3.0 Albumin/Globulin Ratio 1.3 Urine Color Urine Appearance Urine pH Ur Specific [place] Urine Protein Urine Glucose (UA) Urine Ketones Urine Blood Urine Nitrate Urine Bilirubin Urine Urobilinogen Ur Leukocyte Esterase Urine Opiates Screen Urine Methadone Screen Ur Barbiturates Screen Ur Phencyclidine Scrn Ur Amphetamines Screen U Benzodiazepines Scrn U Oth Cocaine Metabols U Cannabinoids Screen Attending/Attestation - Attestation I have personally seen and examined this patient.: Yes I have fully participated in the care of the patient.: Yes I have reviewed all pertinent clinical information: Yes Notes (Text): 09/19/17 14:39 Attending note; Patient seen and examined with resident in ER. Patient is alert and awake. Able to give history. Patient's , daughter and son by the bedside. Patient is a 51 year old female with past medical history HTN, breast cancer, diverticulitis, alcohol abuse presenting s/p seizures. She states that approximately around two hours prior, she was at a nail salon with her daughter , who witnessed her becoming tremulous and cyanotic, progressing to convulsions with foaming at the mouth. Patient's family confirmed that she had one episode about few months ago. There are aware of this episodes as alcohol withdrawal seizure. Patient denies any previous history of seizure disorder. Currently alert and awake. CT head is negative. Denies any headache. Tolerating diet. Alcohol withdrawal symptoms; started on IV Ativan when necessary. Continue IV banana bag. Monitor closely with [facility] protocol. AA meetings/rehabilitation offered. Complete alcohol cessation is strongly advised. History of breast cancer; currently follows up with Dr. Bhatia. Continue tamoxifen. Monitor closely. Patient agreed to Follow-up with PMD Dr. Puentes upon discharge. 09/19/17 14:42
[2017-09-18] MEDS ORDERED: Potassium Chloride 20 mEq ER Tab PO ONE ×2 (19:30→23:30)
--- NOTE | 2017-09-18 21:58 | CARD ---
APPROVED REPORT Date of service: 09/18/2017 EKG Measurement Heart [id number] <Conclusion> Normal sinus rhythm Prolonged QT Abnormal ECG
[2017-09-19 01:59] VITALS: BMI 28.2
[2017-09-19 03:30] LABS: URINE BILIRUBIN NEGATIVE (NEGATIVE); URINE BLOOD NEGATIVE (NEGATIVE); URINE GLUCOSE (UA) NEGATIVE (NEGATIVE); URINE LEUKOCYTE ESTERASE NEGATIVE Leu/uL (NEGATIVE); URINE PROTEIN NEGATIVE mg/dL (<30 mg/dL); URINE UROBILINOGEN 0.2 E.U./dL (<1 E.U./dL)
[2017-09-19 03:39] LABS: BARBITURATES, UR NEGATIVE (NEGATIVE); BENZODIAZEPINES, UR POSITIVE (NEGATIVE); OPIATES, UR NEGATIVE (NEGATIVE); PHENCYCLIDINE, UR NEGATIVE (NEGATIVE)
[2017-09-19 03:45] LABS: URINE APPEARANCE CLEAR (CLEAR); URINE COLOR YELLOW (YELLOW)
[2017-09-19 06:04] VITALS: O2SAT 97
[2017-09-19 07:18] LABS: BASO # 0.02 K/mm3 (0.0-2.0); BASO % 0.3 % (0.0-3.0); EOS # 0.1 (0.0-0.7); GRAN # 4.94 (1.4-6.5); GRAN % 70.4 % (50.0-68.0); HEMOGLOBIN 12.7 g/dL (12.0-16.0); LYMPH # 1.4 (1.2-3.4); LYMPH % 20.2 % (22.0-35.0); MEAN CELL VOLUME 98.7 fl (80.0-105.0); MEAN CORPUSCULAR HEMOGLOBIN 33.9 pg (25.0-35.0); MEAN CORPUSCULAR HGB CONC 34.3 g/dl (31.0-37.0); MEAN PLATELET VOLUME 9.7 fl (7.0-11.0); MONO # 0.6 (0.1-0.6); MONO % 8.1 % (1.0-6.0); RBC 3.75 10^6/uL (3.5-6.1); RED CELL DISTRIBUTION WIDTH 13.4 % (11.5-14.5)
[2017-09-19 07:41] LABS: ALB/GLOB RATIO 1.3 (1.1-1.8); ALT/SGPT 50 U/L (7-56); AST/SGOT 84 U/L (14-36); BLOOD UREA NITROGEN 8 mg/dL (7-21); CALCIUM 8.6 mg/dL (8.4-10.5); GFR AFRICAN-AMERICAN > 60; GFR NON-AFRICAN AMERICAN > 60
[2017-09-19] MEDS ORDERED: Magnesium 2 gm/50 ml NS 2 GM/50 ML BAG IVPB ONE (09:09)
[2017-09-19] MEDS ORDERED: Enoxaparin 40 mg Syringe SC SCH (10:00)
[2017-09-19 12:33] VITALS: BP 120/89; RESP 18
[2017-09-19 14:31] VITALS: TEMP 98.6
--- NOTE | 2017-09-19 15:16 | CP.PCM.DIS ---
<Jonny Castro - Last Filed: 09/19/17 16:25> Provider - Provider Date of Admission: 09/18/17 17:52 Attending physician: Cuco Muñiz MD Time Spent in preparation of Discharge (in minutes): 45 Diagnosis - Discharge Diagnosis (1) Alcohol withdrawal seizure Status: Resolved Priority: Medium (2) Alcohol abuse Status: Chronic Priority: Medium (3) Hypomagnesemia Status: Resolved Priority: Medium (4) Hypokalemia Status: Resolved Priority: Medium (5) History of breast cancer Status: Chronic Priority: Medium Hospital Course - Lab Results Lab Results: Most Recent Lab Values WBC 7.0 10^3/ul (4.5-11.0) 09/19/17 06:30 RBC 3.75 10^6/uL (3.5-6.1) 09/19/17 06:30 Hgb 12.7 g/dL (12.0-16.0) 09/19/17 06:30 Hct 37.0 % (36.0-48.0) 09/19/17 06:30 MCV 98.7 fl (80.0-105.0) 09/19/17 06:30 MCH 33.9 pg (25.0-35.0) 09/19/17 06:30 MCHC 34.3 g/dl (31.0-37.0) 09/19/17 06:30 RDW 13.4 % (11.5-14.5) 09/19/17 06:30 Plt Count 225 10^3/uL (120.0-450.0) 09/19/17 06:30 MPV 9.7 fl (7.0-11.0) 09/19/17 06:30 Gran % 70.4 % (50.0-68.0) H 09/19/17 06:30 Lymph % (Auto) 20.2 % (22.0-35.0) L 09/19/17 06:30 [place] % (Auto) 8.1 % (1.0-6.0) H 09/19/17 06:30 Eos % (Auto) 1.0 % (1.5-5.0) L 09/19/17 06:30 Baso % (Auto) 0.3 % (0.0-3.0) 09/19/17 06:30 Gran # 4.94 (1.4-6.5) 09/19/17 06:30 Lymph # (Auto) 1.4 (1.2-3.4) 09/19/17 06:30 [place] # (Auto) 0.6 (0.1-0.6) 09/19/17 06:30 Eos # (Auto) 0.1 (0.0-0.7) 09/19/17 06:30 Baso # (Auto) 0.02 K/mm3 (0.0-2.0) 09/19/17 06:30 Sodium 140 mmol/L (132-148) 09/19/17 06:30 Potassium 4.4 mmol/L (3.6-5.0) 09/19/17 06:30 Chloride 105 mmol/L (98-107) 09/19/17 06:30 Carbon Dioxide 25 mmol/L (21-33) 09/19/17 06:30 Anion Gap 14 (10-20) 09/19/17 06:30 BUN 8 mg/dL (7-21) 09/19/17 06:30 Creatinine 0.6 mg/dl (0.7-1.2) L 09/19/17 06:30 Est GFR ( Amer) > 60 09/19/17 06:30 Est GFR (Non-Af Amer) > 60 09/19/17 06:30 Random Glucose 106 mg/dL (70-110) 09/19/17 06:30 Calcium 8.6 mg/dL (8.4-10.5) 09/19/17 06:30 Magnesium 1.9 mg/dL (1.7-2.2) 09/19/17 06:30 Total Bilirubin 1.0 mg/dL (0.2-1.3) 09/19/17 06:30 AST 84 U/L (14-36) H 09/19/17 06:30 ALT 50 U/L (7-56) 09/19/17 06:30 Alkaline Phosphatase 86 U/L (38-126) 09/19/17 06:30 Total Protein 7.0 g/dL (5.8-8.3) 09/19/17 06:30 Albumin 4.0 g/dL (3.0-4.8) 09/19/17 06:30 Globulin 3.0 gm/dL 09/19/17 06:30 Albumin/Globulin Ratio 1.3 (1.1-1.8) 09/19/17 06:30 Urine Color Yellow (YELLOW) 09/19/17 02:30 Urine Appearance Clear (CLEAR) 09/19/17 02:30 Urine pH 8.0 (4.7-8.0) 09/19/17 02:30 Ur Specific [place] 1.015 (1.005-1.035) 09/19/17 02:30 Urine Protein Negative mg/dL (<30 mg/dL) 09/19/17 02:30 Urine Glucose (UA) Negative mg/dL (NEGATIVE) 09/19/17 02:30 Urine Ketones Negative mg/dL (NEGATIVE) 09/19/17 02:30 Urine Blood Negative (NEGATIVE) 09/19/17 02:30 Urine Nitrate Negative (NEGATIVE) 09/19/17 02:30 Urine Bilirubin Negative (NEGATIVE) 09/19/17 02:30 Urine Urobilinogen 0.2 E.U./dL (<1 E.U./dL) 09/19/17 02:30 Ur Leukocyte Esterase Negative [place]/uL (NEGATIVE) 09/19/17 02:30 Urine Opiates Screen Negative (NEGATIVE) 09/19/17 02:30 Urine Methadone Screen Negative (NEGATIVE) 09/19/17 02:30 Ur Barbiturates Screen Negative (NEGATIVE) 09/19/17 02:30 Ur Phencyclidine Scrn Negative (NEGATIVE) 09/19/17 02:30 Ur Amphetamines Screen Negative (NEGATIVE) 09/19/17 02:30 U Benzodiazepines Scrn Positive (NEGATIVE) H 09/19/17 02:30 U Oth Cocaine Metabols Negative (NEGATIVE) 09/19/17 02:30 U Cannabinoids Screen Negative (NEGATIVE) 09/19/17 02:30 Alcohol, Quantitative < 10 mg/dL (0-10) 09/18/17 17:00 - Hospital Course Hospital Course: Ms. Victor is a 51 year old female with past medical history HTN, breast cancer , diverticulitis, alcohol abuse presenting s/p one episode of seizure and was found to have hypokalemia and hypomagnesemia. Patient was treated with librium, ativan, valtrex, and tamoxifen. Lovenox and protonix were also given for GI and DVT prophylaxis. Patient was also on CIWA protocol and had a CIWA score of 2. During the course of her hospital stay, patient got an EKG that showed NSR and prolonged QTc of 521. Head CT showed no acute intracranial findings. Patient was instructed to start new medications as prescribed: Librium 10mg TID for 2 days and resume home medications. Patient was educated on the correct way to take medications and was instructed to follow up with her primary care doctor in 3-5 days. She was also instructed to follow up with her oncologist as scheduled. She was instructed to stop drinking alcohol completely and was encouraged to go to AA meetings. Patient further informed to return to the ED if symptoms return.Patient is now medically optimized for discharge. Discharge Exam - Head Exam Head Exam: ATRAUMATIC, NORMOCEPHALIC - Eye Exam Eye Exam: Normal appearance - ENT Exam ENT Exam: Mucous Membranes Moist - Respiratory Exam Respiratory Exam: Clear to PA & Lateral. absent: Rales, Rhonchi, Wheezes - Cardiovascular Exam Cardiovascular Exam: REGULAR RHYTHM, +S1, +S2. absent: Gallop, Rubs, Systolic Murmur - GI/Abdominal Exam GI & Abdominal Exam: Normal Bowel Sounds, Soft. absent: Tenderness - Extremities Exam Additional comments: no calf tenderness or pedal edema - Neurological Exam Neurological exam: Alert, Oriented x3 - Psychiatric Exam Psychiatric exam: Normal Affect, Normal Mood - Skin Skin Exam: Dry, Normal Color, Warm Discharge Plan - Discharge Medications Prescriptions: chlordiazePOXIDE [Chlordiazepoxide HCl] 10 mg PO TID #6 cap ALPRAZolam [Xanax] 1 mg PO BID #10 tab - Follow Up Plan Condition: GOOD Disposition: HOME/ ROUTINE Instructions: Heart Healthy Diet, Seizures, Adult (DC), Alcohol Abuse and Alcoholism (DC) Additional Instructions: - Follow up with your primary doctor in 3-5 days - Follow up with your oncologist as scheduled - Complete cessation of alcohol as advised - Take Librium as prescribed - Resume home medications as prescribed - Proceed to ED if symptoms return Please do not operate a vehicle (no driving) and/or heavy machinery as seizure was noted prior to admission. Diet: Heart Healthy Patient states that she has always refused the flu and pneumococal vaccines, and at time of this writing - patient continues to refuse. Referrals: Alcoholics Anonymous [Outside] <Cuco Muñiz - Last Filed: 09/20/17 10:10> Provider - Provider Date of Admission: 09/18/17 17:52 Attending physician: Cuco Muñiz MD Hospital Course - Lab Results Lab Results: Most Recent Lab Values WBC 7.0 10^3/ul (4.5-11.0) 09/19/17 06:30 RBC 3.75 10^6/uL (3.5-6.1) 09/19/17 06:30 Hgb 12.7 g/dL (12.0-16.0) 09/19/17 06:30 Hct 37.0 % (36.0-48.0) 09/19/17 06:30 MCV 98.7 fl (80.0-105.0) 09/19/17 06:30 MCH 33.9 pg (25.0-35.0) 09/19/17 06:30 MCHC 34.3 g/dl (31.0-37.0) 09/19/17 06:30 RDW 13.4 % (11.5-14.5) 09/19/17 06:30 Plt Count 225 10^3/uL (120.0-450.0) 09/19/17 06:30 MPV 9.7 fl (7.0-11.0) 09/19/17 06:30 Gran % 70.4 % (50.0-68.0) H 09/19/17 06:30 Lymph % (Auto) 20.2 % (22.0-35.0) L 09/19/17 06:30 [place] % (Auto) 8.1 % (1.0-6.0) H 09/19/17 06:30 Eos % (Auto) 1.0 % (1.5-5.0) L 09/19/17 06:30 Baso % (Auto) 0.3 % (0.0-3.0) 09/19/17 06:30 Gran # 4.94 (1.4-6.5) 09/19/17 06:30 Lymph # (Auto) 1.4 (1.2-3.4) 09/19/17 06:30 [place] # (Auto) 0.6 (0.1-0.6) 09/19/17 06:30 Eos # (Auto) 0.1 (0.0-0.7) 09/19/17 06:30 Baso # (Auto) 0.02 K/mm3 (0.0-2.0) 09/19/17 06:30 Sodium 140 mmol/L (132-148) 09/19/17 06:30 Potassium 4.4 mmol/L (3.6-5.0) 09/19/17 06:30 Chloride 105 mmol/L (98-107) 09/19/17 06:30 Carbon Dioxide 25 mmol/L (21-33) 09/19/17 06:30 Anion Gap 14 (10-20) 09/19/17 06:30 BUN 8 mg/dL (7-21) 09/19/17 06:30 Creatinine 0.6 mg/dl (0.7-1.2) L 09/19/17 06:30 Est GFR ( Amer) > 60 09/19/17 06:30 Est GFR (Non-Af Amer) > 60 09/19/17 06:30 Random Glucose 106 mg/dL (70-110) 09/19/17 06:30 Calcium 8.6 mg/dL (8.4-10.5) 09/19/17 06:30 Magnesium 1.9 mg/dL (1.7-2.2) 09/19/17 06:30 Total Bilirubin 1.0 mg/dL (0.2-1.3) 09/19/17 06:30 AST 84 U/L (14-36) H 09/19/17 06:30 ALT 50 U/L (7-56) 09/19/17 06:30 Alkaline Phosphatase 86 U/L (38-126) 09/19/17 06:30 Total Protein 7.0 g/dL (5.8-8.3) 09/19/17 06:30 Albumin 4.0 g/dL (3.0-4.8) 09/19/17 06:30 Globulin 3.0 gm/dL 09/19/17 06:30 Albumin/Globulin Ratio 1.3 (1.1-1.8) 09/19/17 06:30 Urine Color Yellow (YELLOW) 09/19/17 02:30 Urine Appearance Clear (CLEAR) 09/19/17 02:30 Urine pH 8.0 (4.7-8.0) 09/19/17 02:30 Ur Specific [place] 1.015 (1.005-1.035) 09/19/17 02:30 Urine Protein Negative mg/dL (<30 mg/dL) 09/19/17 02:30 Urine Glucose (UA) Negative mg/dL (NEGATIVE) 09/19/17 02:30 Urine Ketones Negative mg/dL (NEGATIVE) 09/19/17 02:30 Urine Blood Negative (NEGATIVE) 09/19/17 02:30 Urine Nitrate Negative (NEGATIVE) 09/19/17 02:30 Urine Bilirubin Negative (NEGATIVE) 09/19/17 02:30 Urine Urobilinogen 0.2 E.U./dL (<1 E.U./dL) 09/19/17 02:30 Ur Leukocyte Esterase Negative [place]/uL (NEGATIVE) 09/19/17 02:30 Urine Opiates Screen Negative (NEGATIVE) 09/19/17 02:30 Urine Methadone Screen Negative (NEGATIVE) 09/19/17 02:30 Ur Barbiturates Screen Negative (NEGATIVE) 09/19/17 02:30 Ur Phencyclidine Scrn Negative (NEGATIVE) 09/19/17 02:30 Ur Amphetamines Screen Negative (NEGATIVE) 09/19/17 02:30 U Benzodiazepines Scrn Positive (NEGATIVE) H 09/19/17 02:30 U Oth Cocaine Metabols Negative (NEGATIVE) 09/19/17 02:30 U Cannabinoids Screen Negative (NEGATIVE) 09/19/17 02:30 Alcohol, Quantitative < 10 mg/dL (0-10) 09/18/17 17:00 Attending/Attestation - Attestation I have personally seen and examined this patient.: Yes I have fully participated in the care of the patient.: Yes I have reviewed all pertinent clinical information, including history, physical exam and plan: Yes Notes (Text): 09/20/17 10:06 Attending note; Patient seen and examined with resident . Denies any withdrawal symptoms. Alert and awake. Tolerating diet. Ambulating fine. Patient is a 51 year old female with past medical history HTN, breast cancer, diverticulitis, alcohol abuse presenting s/p alcohol withdrawal seizures. Patient denies any previous history of seizure disorder. Patient is completely seizure free. No significant withdrawal symptoms. Treated with Ativan. Will be discharged with Librium for 2 more days. AA meetings/rehabilitation offered. Complete alcohol cessation is strongly advised. History of breast cancer; currently follows up with Dr. Bhatia. Continue tamoxifen. Prescription for Xanax for 5 days given. Librium 10 mg po 3 times a day for 2 days given. Patient agreed to Follow-up with PMD Dr. Puentes upon discharge. 09/20/17 10:10
[2017-09-19 17:11] VITALS: PULSE 109
== END 2017-09-19 16:17 | disposition home or self-care (01) ==
LOC: ED 16:26 → ERH 17:52 → INTOOBSV 17:52 → ERH 18:26 → 2RNO 19:15
PROVIDERS: ADMIT Internal Medicine; ATTEND Internal Medicine
DX: F10.239 Alcohol dependence with withdrawal, unspecified (principal); G40.89 Other seizures; E83.42 Hypomagnesemia; E87.6 Hypokalemia; I10 Essential (primary) hypertension; Z85.3 Personal history of malignant neoplasm of breast; Z87.891 Personal history of nicotine dependence; Z92.21 Personal history of antineoplastic chemotherapy; Z92.3 Personal history of irradiation; Z93.3 Colostomy status
CPT/HCPCS: 36415; 70450; 80053; 81003; 83735; 85025; 93005; 96365; 96367; 96375; 99285; C9113; G0378; G0480; J1650; J2060; J3411; J3475; J7030